=== PATIENT | male | born 1950 | race Two or more races ===

== ENCOUNTER 2017-09-17 14:32 | Inpatient (IN) | payer MEDICARE, MEDICAID ==
[~2017-09-17] VITALS: Ht 170.2 cm; Wt 71.0 kg
[~2017-09-17 14:32] MED LIST: ASPI-611 PO; ATOR20TA PO; CYCL-1 PO; DOCU100C23 PO; HYDR-3972 PO; HYDR25CA PO; MAGN296S50 PO; OMEP40CA37 PO
[2017-09-17 14:55] LABS: BASOPHILS # (AUTO) 0.1 X10'3 (0-0.2); BASOPHILS % (AUTO) 1.1 % (0-1); EOSINOPHILS # (AUTO) 0.3 X10'3 (0-0.9); EOSINOPHILS % (AUTO) 3.1 % (0-6); HEMATOCRIT 42.6 % (42.0-52.0); HEMOGLOBIN 14.5 g/dl (14.0-17.9); LYMPHOCYTES # (AUTO) 1.9 X10'3 (1.1-4.8); LYMPHOCYTES % (AUTO) 19.9 % (21-51); MEAN PLATELET VOLUME 8.4 FL (7.4-10.4); MONOCYTES # (AUTO) 0.4 X10'3 (0-0.9); MONOCYTES % (AUTO) 4.7 % (2-12); NEUTROPHILS # (AUTO) 6.8 X10'3 (1.8-7.7); NEUTROPHILS % (AUTO) 71.2 % (42-75); PLATELET COUNT 184 X10'3 (140-440); RED BLOOD COUNT 4.84 X10'6 (4.70-6.10); RED CELL DISTRIBUTION WIDTH 14.5 % (11.5-14.5); WHITE BLOOD COUNT 9.6 X10'3 (4.5-11.0)
[2017-09-17 15:06] LABS: PARTIAL THROMBOPLASTIN TIME 27 SECONDS (22-32)
[2017-09-17 15:11] LABS: ALANINE AMINOTRANSFERASE 23 U/L (12-78); ALBUMIN 3.9 G/DL (3.4-5.0); ALKALINE PHOSPHATASE 103 IU/L (46-116); ANION GAP 9 (8-16); ASPARTATE AMINO TRANSFERASE 14 U/L (10-37); BILIRUBIN,TOTAL 0.9 MG/DL (0.1-1.0); BLOOD UREA NITROGEN 33 MG/DL (7-18); BUN/CREATININE RATIO 20.6 (5.4-32.0); CALCIUM 8.8 MG/DL (8.5-10.1); CHLORIDE 104 MMOL/L (99-107); GLUCOSE 161 MG/DL (70-104); POTASSIUM 4.4 MMOL/L (3.5-5.1); SODIUM 137 MMOL/L (135-145); TOTAL PROTEIN 7.7 G/DL (6.4-8.2); eGFR 43 ML/MIN
[2017-09-17] MEDS ORDERED: hydrALAZINE 20mg/ml inj. IV ONE (15:35)
[2017-09-17] MEDS ORDERED: aspirin 325mg tablet PO ONE (15:35)
[2017-09-17] MEDS: nitroGLYCERIN 0.4mg SUBLingual tab SL PRN ×3 (15:45→15:56)
[2017-09-17] MEDS ORDERED: acetaminophen 325mg tablet PO PRN (15:50)
[2017-09-17] MEDS ORDERED: ondansetron/PF 4mg/2ml inj IV PRN (15:50)
[2017-09-17] MEDS ORDERED: docusate sod 100mg capsule PO PRN (15:50)
[2017-09-17] MEDS ORDERED: potassium Cl 20 mEq SR tablet PO PRN ×2 (15:50)
[2017-09-17] MEDS ORDERED: magnesium hydroxide 30ml (MOM) UD suspension PO PRN (15:50)
[2017-09-17] MEDS ORDERED: magnesium 2GM in 50ml NS 50 ML IV PRN (15:50)
[2017-09-17] MEDS ORDERED: potassium Cl 40MEQ/NS 500ml 500 ML IV PRN ×2 (15:50)
[2017-09-17] MEDS ORDERED: magnesium 4gm in 100ml NS 100 ML IV PRN (15:50)
[2017-09-17] MEDS ORDERED: cyclobenzaprine 10mg tablet PO PRN (15:50)
[2017-09-17] MEDS ORDERED: magnesium Cl slow-release 64mg tablet PO PRN (15:50)
[2017-09-17] MEDS ORDERED: mag hydrox/Alum hydrox/simeth 30ml oral suspension PO PRN (15:50)
[2017-09-17] MEDS ORDERED: HYDROcodone/acetaminophen 5mg/325mg tablet PO PRN (15:50)
[2017-09-17] MEDS ORDERED: morphine 2 MG/ML inj. syringe IV STA (16:21)
[2017-09-17] MEDS: morphine 2 MG/ML inj. syringe IV PRN ×2 (18:40→22:57)
[2017-09-17 21:45] VITALS: BP 145/77
[2017-09-18 02:00] VITALS: BP 142/83
[2017-09-18 03:25] LABS: BASOPHILS % (AUTO) 0.1 % (0-1); EOSINOPHILS # (AUTO) 0.5 X10'3 (0-0.9); EOSINOPHILS % (AUTO) 5.8 % (0-6); HEMATOCRIT 40.2 % (42.0-52.0); HEMOGLOBIN 13.7 g/dl (14.0-17.9); LYMPHOCYTES # (AUTO) 2.2 X10'3 (1.1-4.8); LYMPHOCYTES % (AUTO) 26.4 % (21-51); MEAN CORPUSCULAR HEMOGLOBIN 29.9 PG (27.0-31.0); MEAN CORPUSCULAR VOLUME 88.1 FL (78-98); MEAN PLATELET VOLUME 8.7 FL (7.4-10.4); MONOCYTES # (AUTO) 0.4 X10'3 (0-0.9); MONOCYTES % (AUTO) 5.4 % (2-12); NEUTROPHILS # (AUTO) 5.1 X10'3 (1.8-7.7); NEUTROPHILS % (AUTO) 62.3 % (42-75); PLATELET COUNT 171 X10'3 (140-440); RED BLOOD COUNT 4.57 X10'6 (4.70-6.10); RED CELL DISTRIBUTION WIDTH 14.6 % (11.5-14.5); WHITE BLOOD COUNT 8.1 X10'3 (4.5-11.0)
[2017-09-18 03:43] LABS: ALBUMIN 3.3 G/DL (3.4-5.0); ANION GAP 8 (8-16); BLOOD UREA NITROGEN 31 MG/DL (7-18); BUN/CREATININE RATIO 22.1 (5.4-32.0); CALCIUM 8.8 MG/DL (8.5-10.1); CHLORIDE 107 MMOL/L (99-107); GLUCOSE 93 MG/DL (70-104); MAGNESIUM 1.9 MG/DL (1.5-2.4); POTASSIUM 4.3 MMOL/L (3.5-5.1); SODIUM 139 MMOL/L (135-145); TOTAL CARBON DIOXIDE 24.3 MMOL/L (24-32); eGFR 50 ML/MIN
[2017-09-18] MEDS ORDERED: pneumococcal 23-VAL P-sac vacc 25 mcg/0.5ml vial IMVAC ONE (06:30)
[2017-09-18 07:00] VITALS: BP_SYST 138; BP_SYST 150; BP_DIAS 83; BP_DIAS 84
[2017-09-18] MEDS ORDERED: pantoprazole 40mg Tablet.DR PO SCH (07:30)
[2017-09-18] MEDS ORDERED: enoxaparin 40mg/0.4ml syringe SQ SCH (08:00)
[2017-09-18] MEDS ORDERED: K and/or MAG REPLACEMENT MC SCH (08:00)
[2017-09-18] MEDS ORDERED: atorvastatin 20mg tablet PO SCH (08:00)
[2017-09-18] MEDS ORDERED: aspirin 81mg tab.chew PO SCH (08:30)
[2017-09-18] MEDS: morphine 2 MG/ML inj. syringe IV PRN (11:21)
[2017-09-18 15:00] VITALS: BP 136/81
== END 2017-09-18 16:45 | disposition home or self-care (01) | DRG 313 ==
LOC: ER 14:32 → ED HOLD 15:50 → EDBEDREQ 18:38 → PCU 3S 20:07
PROVIDERS: ADMIT Internal Medicine; ATTEND Internal Medicine
DX: R07.89 Other chest pain (principal); E78.00 Pure hypercholesterolemia, unspecified; I10 Essential (primary) hypertension; K21.9 Gastro-esophageal reflux disease without esophagitis; Z86.14 Personal history of Methicillin resistant Staphylococcus aureus infection; Z79.899 Other long term (current) drug therapy; Z79.82 Long term (current) use of aspirin; Z87.440 Personal history of urinary (tract) infections
CPT/HCPCS: 36415; 71045; 80048; 80053; 83735; 84484; 85025; 85610; 85730; 87070; 93005; 96374; 99285; J0360; J1650; J2270

== ENCOUNTER 2018-03-14 07:37 | Emergency (ER) | payer MEDICARE, MEDICAID ==
[~2018-03-14] VITALS: Ht 157.5 cm; Wt 68.0 kg
[2018-03-14 07:55] VITALS: BP 192/93
[2018-03-14] MEDS ORDERED: mupirocin 2% ointment 22GM TP STA (08:21)
== END 2018-03-14 08:44 | disposition home or self-care (01) ==
LOC: ER 07:38
DX: S61.200A Unspecified open wound of right index finger without damage to nail, initial encounter (principal); E78.00 Pure hypercholesterolemia, unspecified; I10 Essential (primary) hypertension; K21.9 Gastro-esophageal reflux disease without esophagitis; Z86.14 Personal history of Methicillin resistant Staphylococcus aureus infection; Z98.890 Other specified postprocedural states; Z79.82 Long term (current) use of aspirin; Z79.899 Other long term (current) drug therapy; W26.9XXA Contact with unspecified sharp object(s), initial encounter; Y93.89 Activity, other specified; Y92.89 Other specified places as the place of occurrence of the external cause; Y99.8 Other external cause status
CPT/HCPCS: 99282

== ENCOUNTER 2018-05-05 13:04 | Emergency (ER) | payer MEDICARE, MEDICAID ==
[~2018-05-05] VITALS: Ht 175.3 cm; Wt 68.0 kg
[~2018-05-05 13:04] MED LIST changes: +DOCU-273 PO; -DOCU100C23 PO
[2018-05-05 14:00] LABS: CLARITY,URINE SLIGHTLY CLOUDY (Clear); COLOR,URINE YELLOW (Yellow); GLUCOSE, URINE NEGATIVE (Neg); KETONES,URINE NEGATIVE (Neg); LEUKOCYTE ESTERASE ,URINE MODERATE (Neg); NITRITES, URINE NEGATIVE (Neg); OCCULT BLOOD,URINE NEGATIVE (Neg); PROTEIN,URINE 100 mg/dl (Neg); UA COLLECTION TYPE CLN CATCH MIDSTREAM; UROBILINOGEN,URINE 0.2 E.U/dL (0.2-1.0)
[2018-05-05 14:07] LABS: BACTERIA,URINE 1+ /HPF (Neg); HYALINE CASTS 0-3 /LPF (NEGATIVE); MUCUS STRANDS NONE SEEN /LPF (Neg); RBC,URINE NONE SEEN /HPF (0-2); SQUAMOUS EPITHELIAL CELL,UR NONE SEEN /LPF (FEW); WBC,URINE 50-100 /HPF (0-4)
[2018-05-05] MEDS ORDERED: nitrofuran/nitrofuran macrocrysal 100 MG capsule PO ONE (14:50)
[2018-05-05] MEDS ORDERED: ketorolac trometh inj. 60 MG/2 ML VIAL IM ONE (14:50)
[2018-05-05] MEDS ORDERED: ketorolac trometh. 30mg/ml inj. IM ONE (14:55)
[2018-05-05 15:22] LABS: BASOPHILS % (AUTO) 0.4 % (0-1); EOSINOPHILS # (AUTO) 0.3 X10'3 (0-0.9); EOSINOPHILS % (AUTO) 4.5 % (0-6); HEMATOCRIT 41.2 % (42.0-52.0); HEMOGLOBIN 14.3 g/dl (14.0-17.9); LYMPHOCYTES # (AUTO) 2.5 X10'3 (1.1-4.8); LYMPHOCYTES % (AUTO) 43.4 % (21-51); MEAN CORPUSCULAR HEMOGLOBIN 31.6 PG (27.0-31.0); MEAN CORPUSCULAR HGB CONC 34.7 % (33.0-36.5); MEAN PLATELET VOLUME 8.6 FL (7.4-10.4); MONOCYTES # (AUTO) 0.4 X10'3 (0-0.9); MONOCYTES % (AUTO) 6.3 % (2-12); NEUTROPHILS # (AUTO) 2.7 X10'3 (1.8-7.7); NEUTROPHILS % (AUTO) 45.4 % (42-75); PLATELET COUNT 170 X10'3 (140-440); RED BLOOD COUNT 4.53 X10'6 (4.70-6.10); RED CELL DISTRIBUTION WIDTH 13.9 % (11.5-14.5); WHITE BLOOD COUNT 5.9 X10'3 (4.5-11.0)
[2018-05-05 15:36] LABS: ALANINE AMINOTRANSFERASE 20 U/L (12-78); ALBUMIN 3.5 G/DL (3.4-5.0); ALBUMIN/GLOBULIN RATIO 0.9 (1.1-1.5); ALKALINE PHOSPHATASE 100 IU/L (46-116); ANION GAP 9 (8-16); ASPARTATE AMINO TRANSFERASE 18 U/L (10-37); BILIRUBIN,TOTAL 0.7 MG/DL (0.1-1.0); BLOOD UREA NITROGEN 27 MG/DL (7-18); BUN/CREATININE RATIO 16.4 (5.4-32.0); CALCIUM 8.4 MG/DL (8.5-10.1); CHLORIDE 106 MMOL/L (99-107); CREATININE 1.65 MG/DL (0.60-1.10); GLUCOSE 94 MG/DL (70-104); POTASSIUM 4.4 MMOL/L (3.5-5.1); SODIUM 139 MMOL/L (135-145); TOTAL CARBON DIOXIDE 24.3 MMOL/L (24-32); TOTAL PROTEIN 7.2 G/DL (6.4-8.2); eGFR 42 ML/MIN
[2018-05-05] MEDS ORDERED: NITR100C6 PO (15:46)
[2018-05-05 16:07] VITALS: BP 177/95
== END 2018-05-05 16:12 | disposition home or self-care (01) ==
LOC: ER 13:05
DX: N39.0 Urinary tract infection, site not specified (principal); M54.5 Low back pain; G89.29 Other chronic pain; E78.00 Pure hypercholesterolemia, unspecified; I10 Essential (primary) hypertension; K21.9 Gastro-esophageal reflux disease without esophagitis; Z86.14 Personal history of Methicillin resistant Staphylococcus aureus infection; Z98.890 Other specified postprocedural states; Z79.82 Long term (current) use of aspirin; Z79.899 Other long term (current) drug therapy
CPT/HCPCS: 36415; 80053; 81001; 85025; 87077; 87088; 87186; 96372; 99284; J1885

== ENCOUNTER 2018-05-10 09:03 | Emergency (ER) | payer MEDICARE, MEDICAID ==
[~2018-05-10] VITALS: Ht 172.7 cm; Wt 68.2 kg
[~2018-05-10 09:03] MED LIST changes: +NITR100C6 PO
[2018-05-10 09:05] VITALS: BP 169/103
[2018-05-10] MEDS ORDERED: ketorolac trometh inj. 60 MG/2 ML VIAL IM ONE (10:00)
== END 2018-05-10 10:31 | disposition home or self-care (01) ==
LOC: ER 09:03
DX: G89.29 Other chronic pain (principal); M54.5 Low back pain; E78.00 Pure hypercholesterolemia, unspecified; I10 Essential (primary) hypertension; K21.9 Gastro-esophageal reflux disease without esophagitis; Z79.82 Long term (current) use of aspirin; Z79.899 Other long term (current) drug therapy
CPT/HCPCS: 72070; 96372; 99284; J1885

== ENCOUNTER 2019-05-05 14:32 | Emergency (ER) | payer MEDICARE, MEDICAID ==
[~2019-05-05] VITALS: Ht 175.3 cm; Wt 58.9 kg
[~2019-05-05 14:32] MED LIST changes: +OMEP40CA13 PO; -OMEP40CA37 PO
[2019-05-05 14:36] VITALS: BP 199/102
[2019-05-05] MEDS ORDERED: LIDOcaine Viscous 15ml cup PO ONE (15:10)
[2019-05-05] MEDS ORDERED: mag hydrox/Alum hydrox/simeth 30ml oral suspension PO ONE (15:10)
[2019-05-05 15:34] LABS: PARTIAL THROMBOPLASTIN TIME 26 SECONDS (22-32)
[2019-05-05 15:36] LABS: BASOPHILS % (AUTO) 0.4 % (0-1); EOSINOPHILS # (AUTO) 0.2 X10'3 (0-0.9); EOSINOPHILS % (AUTO) 2.4 % (0-6); HEMATOCRIT 43.5 % (42.0-52.0); HEMOGLOBIN 14.9 g/dl (14.0-17.9); LYMPHOCYTES # (AUTO) 3.1 X10'3 (1.1-4.8); MEAN CORPUSCULAR HEMOGLOBIN 31.7 PG (27.0-31.0); MEAN CORPUSCULAR HGB CONC 34.2 g/dL (33.0-36.5); MEAN CORPUSCULAR VOLUME 92.4 FL (78-98); MEAN PLATELET VOLUME 8.6 FL (7.4-10.4); MONOCYTES # (AUTO) 0.3 X10'3 (0-0.9); MONOCYTES % (AUTO) 4.8 % (2-12); NEUTROPHILS # (AUTO) 3.6 X10'3 (1.8-7.7); NEUTROPHILS % (AUTO) 49.4 % (42-75); PLATELET COUNT 167 X10'3 (140-440); RED BLOOD COUNT 4.71 X10'6 (4.70-6.10); RED CELL DISTRIBUTION WIDTH 13.7 % (11.5-14.5); WHITE BLOOD COUNT 7.2 X10'3 (4.5-11.0)
[2019-05-05 15:37] LABS: ALANINE AMINOTRANSFERASE 31 U/L (12-78); ALBUMIN 3.7 G/DL (3.4-5.0); ALKALINE PHOSPHATASE 103 IU/L (46-116); ANION GAP 12 (8-16); ASPARTATE AMINO TRANSFERASE 16 U/L (10-37); BILIRUBIN,TOTAL 0.8 MG/DL (0.1-1.0); BLOOD UREA NITROGEN 27 MG/DL (7-18); BUN/CREATININE RATIO 17.9 (5.4-32.0); CALCIUM 8.9 MG/DL (8.5-10.1); CHLORIDE 103 MMOL/L (99-107); CREATININE 1.51 MG/DL (0.60-1.10); GLUCOSE 158 MG/DL (70-104); POTASSIUM 4.1 MMOL/L (3.5-5.1); SODIUM 138 MMOL/L (135-145); TOTAL CARBON DIOXIDE 22.6 MMOL/L (24-32); TOTAL PROTEIN 7.4 G/DL (6.4-8.2); eGFR 46 ML/MIN
[2019-05-05] MEDS ORDERED: OMEP40CA13 PO (15:54)
== END 2019-05-05 16:07 | disposition home or self-care (01) ==
LOC: ER 14:33
DX: R10.13 Epigastric pain (principal); R07.89 Other chest pain; R06.02 Shortness of breath; E78.00 Pure hypercholesterolemia, unspecified; I10 Essential (primary) hypertension; K21.9 Gastro-esophageal reflux disease without esophagitis; Z86.14 Personal history of Methicillin resistant Staphylococcus aureus infection; Z98.890 Other specified postprocedural states; Z79.82 Long term (current) use of aspirin; Z79.899 Other long term (current) drug therapy
CPT/HCPCS: 36415; 71045; 80053; 84484; 85025; 85610; 85730; 93005; 99284

== ENCOUNTER 2019-05-06 11:55 | Emergency (ER) | payer MEDICARE, MEDICAID | END 2019-05-06 13:39 | disposition left against medical advice (07) | LOC: ER 11:57 | DX: R51 Headache (principal); Z53.21 Procedure and treatment not carried out due to patient leaving prior to being seen by health care provider ==

== ENCOUNTER 2019-08-11 09:19 | Emergency (ER) | payer MEDICARE, MEDICAID ==
[~2019-08-11] VITALS: Ht 175.3 cm; Wt 66.0 kg
[2019-08-11] MEDS ORDERED: BENZ-16 PO (10:32)
[2019-08-11] MEDS ORDERED: AZIT250T83 PO (10:32)
[2019-08-11 10:35] VITALS: BP 141/73
[2019-08-11] MEDS ORDERED: ketorolac trometh. 30mg/ml inj. IV ONE (11:00)
== END 2019-08-11 11:28 | disposition home or self-care (01) ==
LOC: ER 09:21
DX: R05 Cough (principal); R11.2 Nausea with vomiting, unspecified; E78.00 Pure hypercholesterolemia, unspecified; I10 Essential (primary) hypertension; K21.9 Gastro-esophageal reflux disease without esophagitis; Z86.14 Personal history of Methicillin resistant Staphylococcus aureus infection; Z98.890 Other specified postprocedural states; Z79.82 Long term (current) use of aspirin; Z79.899 Other long term (current) drug therapy
CPT/HCPCS: 96374; 99283; J1885

== ENCOUNTER 2019-10-03 09:03 | Emergency (ER) | payer MEDICARE, MEDICAID ==
[~2019-10-03] VITALS: Ht 175.3 cm; Wt 68.2 kg
[~2019-10-03 09:03] MED LIST changes: -MAGN296S50 PO; +MAGN296S70 PO
[2019-10-03 09:19] VITALS: BP 165/85
[2019-10-03] MEDS ORDERED: PANT-47 PO (09:23)
[2019-10-03] MEDS ORDERED: METO-384 PO (09:23)
== END 2019-10-03 09:38 | disposition home or self-care (01) ==
LOC: ER 09:03
DX: I10 Essential (primary) hypertension (principal); E78.00 Pure hypercholesterolemia, unspecified; K21.9 Gastro-esophageal reflux disease without esophagitis; Z86.14 Personal history of Methicillin resistant Staphylococcus aureus infection; Z98.890 Other specified postprocedural states; Z79.82 Long term (current) use of aspirin; Z79.899 Other long term (current) drug therapy
CPT/HCPCS: 99281

== ENCOUNTER 2019-11-08 10:49 | Emergency (ER) | payer MEDICARE, MEDICAID ==
[~2019-11-08] VITALS: Ht 175.3 cm; Wt 69.1 kg
[~2019-11-08 10:49] MED LIST changes: +METO-384 PO; +PANT-47 PO
[2019-11-08 12:00] VITALS: BP 186/102
[2019-11-08] MEDS ORDERED: ipratropium/albuterol 3ml nebule NEB ONE (13:05)
[2019-11-08] MEDS ORDERED: azithromycin 250mg tablet PO ONE (13:15)
[2019-11-08] MEDS ORDERED: predniSONE 20 mg tablet PO ONE (13:15)
[2019-11-08] MEDS ORDERED: AZIT-63 PO (13:17)
[2019-11-08] MEDS ORDERED: PRED20TA PO (13:17)
[2019-11-08] MEDS ORDERED: ALBU6.7H9 INH (13:17)
== END 2019-11-08 13:39 | disposition home or self-care (01) ==
LOC: ER 10:50
DX: J20.9 Acute bronchitis, unspecified (principal); I10 Essential (primary) hypertension; E78.00 Pure hypercholesterolemia, unspecified; K21.9 Gastro-esophageal reflux disease without esophagitis; Z86.14 Personal history of Methicillin resistant Staphylococcus aureus infection; Z98.890 Other specified postprocedural states; Z79.82 Long term (current) use of aspirin; Z79.899 Other long term (current) drug therapy; Z79.2 Long term (current) use of antibiotics
CPT/HCPCS: 71045; 93005; 94640; 99283; J7512; 94760

== ENCOUNTER 2019-12-18 10:38 | Emergency (ER) | payer MEDICARE, MEDICAID ==
[~2019-12-18] VITALS: Ht 172.7 cm; Wt 68.2 kg
[~2019-12-18 10:38] MED LIST changes: +ALBU6.7H9 INH
[2019-12-18 10:45] VITALS: BP 117/53
--- NOTE | 2019-12-18 11:12 | NUR ---
Patient has no physical complaint. He requests a refill of an unknown white pill. Pill identifier indicates that it is likely norco. Patient states the pill is used for pain.
== END 2019-12-18 12:45 | disposition home or self-care (01) ==
LOC: ER 10:38
DX: E78.00 Pure hypercholesterolemia, unspecified (principal); I10 Essential (primary) hypertension; K21.9 Gastro-esophageal reflux disease without esophagitis; Z86.14 Personal history of Methicillin resistant Staphylococcus aureus infection; Z98.890 Other specified postprocedural states; Z79.82 Long term (current) use of aspirin; Z79.899 Other long term (current) drug therapy; Z76.0 Encounter for issue of repeat prescription
CPT/HCPCS: 99281

== ENCOUNTER 2019-12-21 09:46 | Inpatient (IN) | payer MEDICARE, MEDICAID ==
[~2019-12-21] VITALS: Ht 175.3 cm; Wt 68.0 kg
[2019-12-21 10:50] LABS: BASOPHILS % (AUTO) 0.3 % (0-1); EOSINOPHILS # (AUTO) 0.2 X10'3 (0-0.9); EOSINOPHILS % (AUTO) 2.1 % (0-6); HEMATOCRIT 45.1 % (42.0-52.0); HEMOGLOBIN 15.1 g/dl (14.0-17.9); LYMPHOCYTES # (AUTO) 1.8 X10'3 (1.1-4.8); LYMPHOCYTES % (AUTO) 21.1 % (21-51); MEAN CORPUSCULAR HEMOGLOBIN 30.6 PG (27.0-31.0); MEAN CORPUSCULAR HGB CONC 33.5 g/dL (33.0-36.5); MEAN CORPUSCULAR VOLUME 91.3 FL (78-98); MEAN PLATELET VOLUME 10.7 FL (7.4-10.4); MONOCYTES # (AUTO) 0.4 X10'3 (0-0.9); MONOCYTES % (AUTO) 4.7 % (2-12); NEUTROPHILS % (AUTO) 71.8 % (42-75); PLATELET COUNT 151 X10'3 (140-440); RED BLOOD COUNT 4.94 X10'6 (4.70-6.10); RED CELL DISTRIBUTION WIDTH 14.2 % (11.5-14.5); WHITE BLOOD COUNT 8.4 X10'3 (4.5-11.0)
[2019-12-21 10:55] LABS: PARTIAL THROMBOPLASTIN TIME 26 SECONDS (22-32)
[2019-12-21] MEDS ORDERED: normal saline 1000ML IV soln IVB ONE ×2 (11:00→11:35)
[2019-12-21 11:05] LABS: ALANINE AMINOTRANSFERASE 26 U/L (12-78); ALBUMIN 3.6 G/DL (3.4-5.0); ALBUMIN/GLOBULIN RATIO 0.9 (1.1-1.5); ALKALINE PHOSPHATASE 136 IU/L (46-116); ANION GAP 10 (8-16); ASPARTATE AMINO TRANSFERASE 23 U/L (10-37); BILIRUBIN,TOTAL 1.1 MG/DL (0.1-1.0); BLOOD UREA NITROGEN 57 MG/DL (7-18); BUN/CREATININE RATIO 25.8 (5.4-32.0); CALCIUM 8.9 MG/DL (8.5-10.1); CHLORIDE 98 MMOL/L (99-107); CREATININE 2.21 MG/DL (0.60-1.10); POTASSIUM 4.9 MMOL/L (3.5-5.1); SODIUM 129 MMOL/L (135-145); TOTAL CARBON DIOXIDE 21.1 MMOL/L (24-32); TOTAL PROTEIN 7.6 G/DL (6.4-8.2); eGFR 29 ML/MIN
[2019-12-21] MEDS ORDERED: insulin regular, human U-100 3ml vial - multi-dose SQ ONE (11:05)
[2019-12-21] MEDS ORDERED: insulin regular, human 10 units/0.1 ml syringe SQ ONE (11:05)
[2019-12-21 11:08] LABS: GLUCOSE 629 MG/DL (70-104)
[2019-12-21 11:10] LABS: LARGE PLATELETS FEW; PLATELET ESTIMATE NORMAL
[2019-12-21] MEDS ORDERED: normal saline 1000ml 1,000 ML IV SCH (12:51)
[2019-12-21] MEDS ORDERED: magnesium hydroxide 30ml (MOM) UD suspension PO PRN (12:55)
[2019-12-21] MEDS ORDERED: acetaminophen 325mg tablet PO PRN (12:55)
[2019-12-21] MEDS ORDERED: mag hydrox/Alum hydrox/simeth 30ml oral suspension PO PRN (12:55)
[2019-12-21] MEDS ORDERED: ondansetron/PF 4mg/2ml inj IV PRN (12:55)
[2019-12-21 13:12] LABS: CLARITY,URINE CLEAR (Clear); COLOR,URINE STRAW (Yellow); GLUCOSE, URINE >=1000 mg/dl (Neg); KETONES,URINE NEGATIVE (Neg); LEUKOCYTE ESTERASE ,URINE NEGATIVE (Neg); NITRITES, URINE NEGATIVE (Neg); OCCULT BLOOD,URINE TRACE-INTACT (Neg); PROTEIN,URINE NEGATIVE (Neg); UROBILINOGEN,URINE 0.2 E.U/dL (0.2-1.0)
[2019-12-21 13:14] LABS: UA COLLECTION TYPE CLN CATCH MIDSTREAM
[2019-12-21] MEDS ORDERED: PANT40TA4 PO (13:22)
[2019-12-21] MEDS ORDERED: ATOR-2 PO (13:22)
[2019-12-21] MEDS ORDERED: ALBU18HF2 IH (13:22)
[2019-12-21] MEDS ORDERED: HYDR-4069 PO (13:22)
[2019-12-21] MEDS ORDERED: DICL100G30 TP (13:22)
[2019-12-21] MEDS ORDERED: METO50TA16 PO (13:22)
[2019-12-21] MEDS ORDERED: TRIA15CR61 TP (13:22)
[2019-12-21] MEDS ORDERED: DULO30CA52 PO (13:22)
[2019-12-21] MEDS ORDERED: GABA-532 PO (13:22)
[2019-12-21 13:24] LABS: BACTERIA,URINE FEW /HPF (Neg); RBC,URINE 0-2 /HPF (0-2); SQUAMOUS EPITHELIAL CELL,UR FEW /LPF (FEW); WBC CLUMPS,URINE FEW /HPF (NEGATIVE); WBC,URINE 0-4 /HPF (0-4)
--- NOTE | 2019-12-21 13:29 | NUR ---
promotional table spacer PAGER ID: [phone] MESSAGE: Re: Colin Cardona, Room: 3010. Pt coming up from ED can I put hyper/hypoglycemic protocol in for Pt. [id number] Hollingsworth paged concerning Hypo-hyperglycemic protocol orders.
--- NOTE | 2019-12-21 13:30 | NUR ---
received report from ER nurse concerning Pt. Had opportunity to ask questions, awaiting Pt's arrival to room 3010.
--- NOTE | 2019-12-21 13:30 | NUR ---
Pt arrived to unit, Pt stable and alert/oriented. Vitals taken WNL. Pt oriented to room and call light. Will continue to monitor Pt.
[2019-12-21 13:45] VITALS: BP 154/83
--- NOTE | 2019-12-21 14:29 | NUR ---
DM consult: Per H&P pt came to the ER per PCP d/t elevated blood sugars in the range of 700s, patient is newly diagnosed diabetic with a hemoglobin A1c of 10.4%. Pt just admitted today, pending physical assessment. Pt would benefit from DM education with referral to outpatient CDE course once stable. Pt on CHO controlled diet, pending PO intake. Will continue to follow closely. Recommendations: 1) Continue CHO controlled diet 2) DM education once stable 3) Bowel care PRN 4) Wt per rx Addendum: 12/21/19 at [address] Amended: Links added.
[2019-12-21] MEDS ORDERED: dextrose 50%-water 50ml dispensing syringe IV PRN ×2 (15:35)
[2019-12-21] MEDS ORDERED: MESSAGE TO PHARMACY PO ONE (15:35)
[2019-12-21] MEDS ORDERED: dextrose ORAL solution 15 GM/59 ML bottle PO PRN ×2 (15:35)
[2019-12-21] MEDS ORDERED: insulin Lispro (HumaLOG) vial - multi-dose SQ SCH (15:35)
[2019-12-21] MEDS ORDERED: glucagon, human recombinant 1mg kit SUBCUT PRN (15:35)
[2019-12-21 18:00] VITALS: BP 162/73
--- NOTE | 2019-12-21 18:10 | NUR ---
Problems reprioritized. Patient report given, questions answered & plan of care reviewed with Ariana COSTELLO.
[2019-12-21] MEDS ORDERED: traMADol 50MG tablet PO ONE (19:05)
[2019-12-21] MEDS ORDERED: heparin, porcine 5000 units/ml vial SQ SCH (20:00)
[2019-12-21] MEDS ORDERED: albuterol 2.5 MG/3 ML nebule NEB SCH (20:00)
[2019-12-21] MEDS ORDERED: metoprolol tartrate 50mg tablet PO SCH (20:00)
[2019-12-21] MEDS ORDERED: triamcinolone acetonide 0.5% cream 15gm TP SCH (20:00)
[2019-12-21] MEDS ORDERED: DICLOFENAC SODIUM TP SCH (20:00)
--- NOTE | 2019-12-21 20:48 | NUR ---
reviewed and agree with SRN assessment. patient left AMA. dr Ang notified.
[2019-12-21] MEDS ORDERED: hydrALAZINE 25 MG tablet PO SCH (21:00)
[2019-12-21] MEDS ORDERED: insulin glargine (Lantus) pen - multi-dose SQ SCH (21:00)
[2019-12-21] MEDS ORDERED: gabapentin 300mg capsule PO SCH (21:00)
[2019-12-22] MEDS ORDERED: atorvastatin 20mg tablet PO SCH (08:00)
[2019-12-22] MEDS ORDERED: duloxetine 30mg CAPSULE.DR PO SCH (08:00)
== END 2019-12-21 19:10 | disposition left against medical advice (07) | DRG 637 ==
LOC: ER 09:46 → ED HOLD 12:51 → PCU 3S 13:47
PROVIDERS: ADMIT Family Medicine; ATTEND Family Medicine
DX: E11.65 Type 2 diabetes mellitus with hyperglycemia (principal); N17.0 Acute kidney failure with tubular necrosis; E87.1 Hypo-osmolality and hyponatremia; E78.00 Pure hypercholesterolemia, unspecified; E78.5 Hyperlipidemia, unspecified; E86.0 Dehydration; Z53.29 Procedure and treatment not carried out because of patient's decision for other reasons; I10 Essential (primary) hypertension; L29.9 Pruritus, unspecified; N40.0 Benign prostatic hyperplasia without lower urinary tract symptoms; Z96.652 Presence of left artificial knee joint; K21.9 Gastro-esophageal reflux disease without esophagitis; Z86.14 Personal history of Methicillin resistant Staphylococcus aureus infection; Z87.440 Personal history of urinary (tract) infections; Z79.899 Other long term (current) drug therapy
CPT/HCPCS: 36415; 71045; 80053; 81001; 82948; 83036; 83880; 84484; 85025; 85610; 85730; 87081; 93306; 96360; 96372; 99285; G0378; J1815; J7030

== ENCOUNTER 2020-04-19 08:41 | Emergency (ER) | payer MEDICARE, MEDICAID ==
[~2020-04-19] VITALS: Ht 175.3 cm; Wt 58.0 kg
[~2020-04-19 08:41] MED LIST changes: +ALBU18HF2 IH; -ALBU6.7H9 INH; -ASPI-611 PO; +ATOR-2 PO; -ATOR20TA PO; -CYCL-1 PO; +DICL100G30 TP; -DOCU-273 PO; +DULO30CA52 PO; +GABA-532 PO; -HYDR-3972 PO; +HYDR-4069 PO; -HYDR25CA PO; -MAGN296S70 PO; -METO-384 PO; +METO50TA16 PO; -NITR100C6 PO; -OMEP40CA13 PO; -PANT-47 PO; +PANT40TA54 PO; +TRIA15CR61 TP
[2020-04-19] MEDS ORDERED: ketorolac tromethamine 15mg/ml inj. IM ONE (09:40)
[2020-04-19] MEDS ORDERED: cyclobenzaprine 10mg tablet PO ONE (09:40)
[2020-04-19] MEDS ORDERED: ORPH100T2 PO (09:47)
[2020-04-19] MEDS ORDERED: FLO0.4C PO (10:31)
[2020-04-19 10:32] VITALS: BP 140/85
== END 2020-04-19 10:35 | disposition home or self-care (01) ==
LOC: ER 08:42
DX: S39.011A Strain of muscle, fascia and tendon of abdomen, initial encounter (principal); E78.00 Pure hypercholesterolemia, unspecified; I10 Essential (primary) hypertension; K21.9 Gastro-esophageal reflux disease without esophagitis; Z86.14 Personal history of Methicillin resistant Staphylococcus aureus infection; Z98.890 Other specified postprocedural states; Z79.899 Other long term (current) drug therapy; X58.XXXA Exposure to other specified factors, initial encounter; Y93.89 Activity, other specified; Y92.89 Other specified places as the place of occurrence of the external cause; Y99.8 Other external cause status
CPT/HCPCS: 96372; 99283; J1885

== ENCOUNTER 2020-08-12 10:52 | Emergency (ER) | payer MEDICARE, MEDICAID ==
[~2020-08-12] VITALS: Ht 175.3 cm; Wt 68.2 kg
[~2020-08-12 10:52] MED LIST changes: +FLO0.4C PO; +ORPH100T2 PO
[2020-08-12 12:08] VITALS: BP 162/90
[2020-08-12 12:14] LABS: BASOPHILS % (AUTO) 0.7 % (0-1); EOSINOPHILS # (AUTO) 0.1 X10'3 (0-0.9); EOSINOPHILS % (AUTO) 2.1 % (0-6); HEMATOCRIT 45.3 % (42.0-52.0); HEMOGLOBIN 15.3 g/dl (14.0-17.9); LYMPHOCYTES # (AUTO) 2.1 X10'3 (1.1-4.8); LYMPHOCYTES % (AUTO) 30.2 % (21-51); MEAN CORPUSCULAR HGB CONC 33.8 g/dL (33.0-36.5); MEAN CORPUSCULAR VOLUME 88.9 FL (78-98); MEAN PLATELET VOLUME 10.6 FL (7.4-10.4); MONOCYTES # (AUTO) 0.4 X10'3 (0-0.9); MONOCYTES % (AUTO) 5.1 % (2-12); NEUTROPHILS # (AUTO) 4.3 X10'3 (1.8-7.7); NEUTROPHILS % (AUTO) 61.9 % (42-75); PLATELET COUNT 127 X10'3 (140-440); RED CELL DISTRIBUTION WIDTH 15.7 % (11.5-14.5); WHITE BLOOD COUNT 6.9 X10'3 (4.5-11.0)
[2020-08-12 12:29] LABS: ALANINE AMINOTRANSFERASE 27 U/L (12-78); ALBUMIN/GLOBULIN RATIO 0.9 (1.1-1.5); ALKALINE PHOSPHATASE 134 IU/L (46-116); ANION GAP 12 (8-16); ASPARTATE AMINO TRANSFERASE 14 U/L (10-37); BILIRUBIN,TOTAL 0.8 MG/DL (0.1-1.0); BLOOD UREA NITROGEN 33 MG/DL (7-18); BUN/CREATININE RATIO 20.9 (5.4-32.0); CALCIUM 9.3 MG/DL (8.5-10.1); CHLORIDE 105 MMOL/L (99-107); CREATININE 1.58 MG/DL (0.60-1.10); GLUCOSE 297 MG/DL (70-104); POTASSIUM 4.3 MMOL/L (3.5-5.1); SODIUM 140 MMOL/L (135-145); TOTAL CARBON DIOXIDE 23.4 MMOL/L (24-32); TOTAL PROTEIN 8.7 G/DL (6.4-8.2); eGFR 43 ML/MIN
--- NOTE | 2020-08-12 14:00 | NUR ---
Patient states that he feels it it to busy to stay and will come back tomorrow if still having symptoms. Dr. Sabillon is aware. LWOBS
[2020-08-13] MEDS ORDERED: ATOR40TA72 PO (15:32)
[2020-08-13] MEDS ORDERED: PREG100C55 PO (15:32)
== END 2020-08-12 15:19 | disposition left against medical advice (07) ==
LOC: ER 10:52
DX: R07.89 Other chest pain (principal); Z53.21 Procedure and treatment not carried out due to patient leaving prior to being seen by health care provider
CPT/HCPCS: 36415; 71045; 80053; 83880; 84484; 85025; 93005

== ENCOUNTER 2020-08-13 09:06 | Inpatient (IN) | payer MEDICARE, MEDICAID ==
[~2020-08-13] VITALS: Ht 175.3 cm; Wt 67.4 kg
--- NOTE | 2020-08-13 10:44 | NUR ---
DR. REYNA AT BEDSIDE TALKING WITH DIRECTOR OF ANESTHESIA SERVICES OVER THE COMPUTER.
[2020-08-13 11:35] LABS: BASOPHILS % (AUTO) 0.4 % (0-1); EOSINOPHILS # (AUTO) 0.1 X10'3 (0-0.9); EOSINOPHILS % (AUTO) 1.3 % (0-6); HEMATOCRIT 44.2 % (42.0-52.0); HEMOGLOBIN 14.9 g/dl (14.0-17.9); LYMPHOCYTES # (AUTO) 1.9 X10'3 (1.1-4.8); LYMPHOCYTES % (AUTO) 31.8 % (21-51); MEAN CORPUSCULAR HEMOGLOBIN 30.3 PG (27.0-31.0); MEAN CORPUSCULAR HGB CONC 33.8 g/dL (33.0-36.5); MEAN CORPUSCULAR VOLUME 89.4 FL (78-98); MEAN PLATELET VOLUME 10.5 FL (7.4-10.4); MONOCYTES # (AUTO) 0.3 X10'3 (0-0.9); MONOCYTES % (AUTO) 4.6 % (2-12); NEUTROPHILS # (AUTO) 3.7 X10'3 (1.8-7.7); NEUTROPHILS % (AUTO) 61.9 % (42-75); PLATELET COUNT 117 X10'3 (140-440); RED BLOOD COUNT 4.94 X10'6 (4.70-6.10); RED CELL DISTRIBUTION WIDTH 15.9 % (11.5-14.5); WHITE BLOOD COUNT 5.9 X10'3 (4.5-11.0)
[2020-08-13 11:51] LABS: ALANINE AMINOTRANSFERASE 25 U/L (12-78); ALBUMIN 3.7 G/DL (3.4-5.0); ALBUMIN/GLOBULIN RATIO 0.8 (1.1-1.5); ALKALINE PHOSPHATASE 132 IU/L (46-116); ANION GAP 10 (8-16); ASPARTATE AMINO TRANSFERASE 15 U/L (10-37); BILIRUBIN,TOTAL 0.7 MG/DL (0.1-1.0); BLOOD UREA NITROGEN 28 MG/DL (7-18); BUN/CREATININE RATIO 17.6 (5.4-32.0); CHLORIDE 105 MMOL/L (99-107); CREATININE 1.59 MG/DL (0.60-1.10); GLUCOSE 447 MG/DL (70-104); POTASSIUM 4.4 MMOL/L (3.5-5.1); SODIUM 139 MMOL/L (135-145); TOTAL CARBON DIOXIDE 24.1 MMOL/L (24-32); TOTAL PROTEIN 8.1 G/DL (6.4-8.2); eGFR 43 ML/MIN
[2020-08-13 11:58] LABS: MAGNESIUM 1.9 MG/DL (1.5-2.4)
[2020-08-13] MEDS ORDERED: HYDROcodone/acetaminophen 10/325mg tab PO PRN (13:45)
[2020-08-13] MEDS ORDERED: normal saline 1000ml 1,000 ML IV SCH (13:45)
[2020-08-13] MEDS ORDERED: aminophylline 250mg/10ml inj. IV PRN (13:45)
[2020-08-13] MEDS ORDERED: potassium Cl 40MEQ/1/2NS 520ml 520 ML IV PRN ×2 (13:45)
[2020-08-13] MEDS ORDERED: magnesium Cl slow-release 64mg tablet PO PRN (13:45)
[2020-08-13] MEDS ORDERED: morphine 2 MG/ML inj. syringe IV PRN ×2 (13:45)
[2020-08-13] MEDS ORDERED: mag hydrox/Alum hydrox/simeth 30ml oral suspension PO PRN (13:45)
[2020-08-13] MEDS ORDERED: metoprolol tartrate 1mg/ml inj IV PRN (13:45)
[2020-08-13] MEDS ORDERED: magnesium 4gm in 100ml NS 100 ML IV PRN (13:45)
[2020-08-13] MEDS ORDERED: magnesium hydroxide 30ml (MOM) UD suspension PO PRN (13:45)
[2020-08-13] MEDS ORDERED: ondansetron/PF 4mg/2ml inj IV PRN (13:45)
[2020-08-13] MEDS ORDERED: nitroGLYCERIN 0.4mg SUBLingual tab SL PRN ×2 (13:45)
[2020-08-13] MEDS ORDERED: HYDROcodone/acetaminophen 5mg/325mg tablet PO PRN (13:45)
[2020-08-13] MEDS ORDERED: potassium Cl 20 mEq SR tablet PO PRN ×2 (13:45)
[2020-08-13] MEDS ORDERED: magnesium 2GM in 50ml NS 50 ML IV PRN (13:45)
[2020-08-13] MEDS ORDERED: acetaminophen 325mg tablet PO PRN ×2 (13:45)
[2020-08-13] MEDS ORDERED: regadenoson 0.4mg/5ml syringe IV ONE (13:45)
--- NOTE | 2020-08-13 14:00 | NUR ---
PT ANGRY AND UPSET STATES, I WANT TO LEAVE VARUN BEEN HERE FOR 3 HOURS. PT MORE CALM AND AWAITING DR. HINES TO SEE PT.
[2020-08-13 14:41] LABS: HEMOGLOBIN A1C 8.6 % (4.5-6.2)
[2020-08-13] MEDS ORDERED: ATOR40TA72 PO (15:32)
[2020-08-13] MEDS ORDERED: PREG100C55 PO (15:32)
--- NOTE | 2020-08-13 16:46 | NUR ---
Patient in room ED 3. I have received report from PRAVIN Barros and had the opportunity to ask questions and awaiting pt's arrival from ED.
[2020-08-13 17:10] VITALS: BP 162/81
--- NOTE | 2020-08-13 17:10 | NUR ---
Pt arrived from Ed, ambulated self to bed with standby assistance. Alert and oriented to room. BLL, SRx2, CL within reach, non skid socks on. Used pension manager phone for communication with day. MRSA swab completed. First set of vitals complete. BP 162/88, HR 98, R 20, Pain 6/10 in back and legs, Temp 98.2, 02 97 Room air.
--- NOTE | 2020-08-13 17:31 | NUR ---
Paged Dr Jeffrey PAGER ID: [phone] MESSAGE: Colin Wolfe Rm [id number] Did you want pt to have hper/hypoglycemia protocol, you only ordered hyperglycemia protocol? Thank you Karol [phone]
--- NOTE | 2020-08-13 18:00 | NUR ---
Patient in room PCU 3028. I have received report from Karol COSTELLO and had the opportunity to ask questions and assume patient care. Patient was willing to listen to Dr Jeffrey and agreed to stay and do a stress test in the morning.
--- NOTE | 2020-08-13 18:37 | NUR ---
[place] Medication Administration: For this medication-pass time frame, all medication were reviewed, dispensed, administered and documented per hospital policy by PRAVIN Carl.
--- NOTE | 2020-08-13 18:37 | NUR ---
Orientee documentation: I have reviewed and agree with all interventions, assessments performed and documented by PRAVIN Carl.
--- NOTE | 2020-08-13 18:38 | NUR ---
Problems reprioritized. Patient report given, questions answered & plan of care reviewed with PRAVIN Barrios.
[2020-08-13 19:00] VITALS: BP 176/85
--- NOTE | 2020-08-13 19:30 | NUR ---
Patient has decided that he no longer wishes to stay and is once again stating that he is going to leave. Refuses to sign AMA papers. Patient is Alert and Oriented at this time. He stated that he will call the doctor tomorrow.
[2020-08-13] MEDS ORDERED: metoprolol tartrate 50mg tablet PO SCH (20:00)
[2020-08-13] MEDS ORDERED: albuterol 2.5 MG/3 ML nebule NEB PRN (20:00)
[2020-08-13] MEDS ORDERED: K and/or MAG REPLACEMENT MC SCH (20:00)
--- NOTE | 2020-08-13 20:11 | NUR ---
MESSAGE: Re: Colin Cardona rm [id number]. Patient left AMA refused to sign AMA papers, A&Ox4
[2020-08-13] MEDS ORDERED: hydrALAZINE 25 MG tablet PO SCH (21:00)
[2020-08-13] MEDS ORDERED: pregabalin 25mg capsule PO SCH (21:00)
[2020-08-13] MEDS ORDERED: pregabalin 75mg capsule PO SCH (21:00)
[2020-08-13] MEDS ORDERED: temazepam 15mg capsule PO PRN (21:00)
[2020-08-14] MEDS ORDERED: enoxaparin 40mg/0.4ml syringe SUBCUT SCH (08:00)
[2020-08-14] MEDS ORDERED: tamsulosin 0.4mg capsule PO SCH (08:00)
[2020-08-14] MEDS ORDERED: atorvastatin 20mg tablet PO SCH (08:00)
[2020-08-14] MEDS ORDERED: pantoprazole 40mg Tablet.DR PO SCH (08:00)
[2020-08-14] MEDS ORDERED: aspirin 325mg tablet PO SCH (08:30)
== END 2020-08-13 20:00 | disposition left against medical advice (07) | DRG 311 ==
LOC: ER 09:07 → ED HOLD 13:45 → PCU 3S 17:55
PROVIDERS: ADMIT Family Medicine; ATTEND Family Medicine
DX: I20.9 Angina pectoris, unspecified (principal); N17.9 Acute kidney failure, unspecified; E78.00 Pure hypercholesterolemia, unspecified; I12.9 Hypertensive chronic kidney disease with stage 1 through stage 4 chronic kidney disease, or unspecified chronic kidney disease; E11.22 Type 2 diabetes mellitus with diabetic chronic kidney disease; Z53.29 Procedure and treatment not carried out because of patient's decision for other reasons; N18.9 Chronic kidney disease, unspecified; E78.5 Hyperlipidemia, unspecified; K21.9 Gastro-esophageal reflux disease without esophagitis; M54.9 Dorsalgia, unspecified; Z87.440 Personal history of urinary (tract) infections; Z86.14 Personal history of Methicillin resistant Staphylococcus aureus infection
CPT/HCPCS: 36415; 71046; 72146; 80053; 82948; 83036; 83735; 83880; 84484; 85025; 85610; 87081; 93005; 99285; G0378; J7030

== ENCOUNTER 2021-01-12 09:17 | Emergency (ER) | payer MEDICARE, MEDICAID ==
[~2021-01-12] VITALS: Ht 175.3 cm; Wt 68.2 kg
[~2021-01-12 09:17] MED LIST changes: -ATOR-2 PO; +ATOR40TA72 PO; -DULO30CA52 PO; -GABA-532 PO; -ORPH100T2 PO; +PREG100C55 PO; -TRIA15CR61 TP
[2021-01-12 09:34] LABS: BASOPHILS % (AUTO) 0.5 % (0-1); EOSINOPHILS # (AUTO) 0.4 X10'3 (0-0.9); EOSINOPHILS % (AUTO) 5.5 % (0-6); HEMATOCRIT 43.9 % (42.0-52.0); HEMOGLOBIN 14.8 g/dl (14.0-17.9); LYMPHOCYTES # (AUTO) 1.9 X10'3 (1.1-4.8); LYMPHOCYTES % (AUTO) 29.7 % (21-51); MEAN CORPUSCULAR HEMOGLOBIN 29.4 PG (27.0-31.0); MEAN CORPUSCULAR HGB CONC 33.7 g/dL (33.0-36.5); MEAN CORPUSCULAR VOLUME 87.1 FL (78-98); MONOCYTES # (AUTO) 0.4 X10'3 (0-0.9); MONOCYTES % (AUTO) 6.8 % (2-12); NEUTROPHILS # (AUTO) 3.7 X10'3 (1.8-7.7); NEUTROPHILS % (AUTO) 57.5 % (42-75); PLATELET COUNT 128 X10'3 (140-440); RED BLOOD COUNT 5.04 X10'6 (4.70-6.10); RED CELL DISTRIBUTION WIDTH 15.7 % (11.5-14.5); WHITE BLOOD COUNT 6.5 X10'3 (4.5-11.0)
[2021-01-12 10:03] LABS: ALANINE AMINOTRANSFERASE 18 U/L (12-78); ALBUMIN 3.4 G/DL (3.4-5.0); ALBUMIN/GLOBULIN RATIO 0.7 (1.1-1.5); ALKALINE PHOSPHATASE 130 IU/L (46-116); ANION GAP 12 (8-16); ASPARTATE AMINO TRANSFERASE 16 U/L (10-37); BILIRUBIN,TOTAL 0.9 MG/DL (0.1-1.0); BLOOD UREA NITROGEN 24 MG/DL (7-18); BUN/CREATININE RATIO 16.1 (5.4-32.0); CALCIUM 9.2 MG/DL (8.5-10.1); CHLORIDE 106 MMOL/L (99-107); CREATININE 1.49 MG/DL (0.60-1.10); GLUCOSE 214 MG/DL (70-104); POTASSIUM 4.5 MMOL/L (3.5-5.1); SODIUM 139 MMOL/L (135-145); TOTAL CARBON DIOXIDE 21.5 MMOL/L (24-32); eGFR 46 ML/MIN
[2021-01-12] MEDS ORDERED: sucralfate 1gm/10ml UD suspension PO STA (10:12)
[2021-01-12] MEDS ORDERED: mag hydrox/Alum hydrox/simeth 30ml oral suspension PO ONE (10:15)
[2021-01-12] MEDS ORDERED: LIDOcaine Viscous 15ml cup MM ONE (10:15)
[2021-01-12 11:59] VITALS: BP 156/88
== END 2021-01-12 12:14 | disposition home or self-care (01) ==
LOC: ER 09:17
DX: R10.13 Epigastric pain (principal); K29.00 Acute gastritis without bleeding; R07.89 Other chest pain; M25.572 Pain in left ankle and joints of left foot; M79.605 Pain in left leg; M79.604 Pain in right leg; I10 Essential (primary) hypertension; E11.9 Type 2 diabetes mellitus without complications; K21.9 Gastro-esophageal reflux disease without esophagitis; E78.00 Pure hypercholesterolemia, unspecified; Z87.440 Personal history of urinary (tract) infections; Z86.14 Personal history of Methicillin resistant Staphylococcus aureus infection; Z79.899 Other long term (current) drug therapy; Z98.890 Other specified postprocedural states
CPT/HCPCS: 36415; 71045; 80053; 83880; 84484; 85025; 93005; 99285

== ENCOUNTER → 2021-04-24 | Emergency (ER) | payer MEDICARE, MEDICAID ==
[~2021-04-24] VITALS: Ht 175.3 cm; Wt 68.2 kg
[~2021-04-24] MED LIST changes: -ALBU18HF2 IH; -FLO0.4C PO; +GEMF600T89 PO; -HYDR-4069 PO; +INSU100I31 SQ; +LISI20TA28 PO
[2021-04-24 09:17] VITALS: BP 178/95
== END | disposition left against medical advice (07) ==
LOC: ER 09:05
DX: M25.512 Pain in left shoulder (principal); Z53.21 Procedure and treatment not carried out due to patient leaving prior to being seen by health care provider

== ENCOUNTER 2021-05-23 17:18 | Emergency (ER) | payer MEDICARE, MEDICAID ==
[~2021-05-23] VITALS: Ht 175.3 cm; Wt 68.2 kg
[2021-05-23 18:24] LABS: BASOPHILS % (AUTO) 0.4 % (0-1); EOSINOPHILS # (AUTO) 0.1 X10'3 (0-0.9); EOSINOPHILS % (AUTO) 2.4 % (0-6); HEMATOCRIT 42.4 % (42.0-52.0); HEMOGLOBIN 14.4 g/dl (14.0-17.9); MEAN CORPUSCULAR HEMOGLOBIN 29.5 PG (27.0-31.0); MEAN CORPUSCULAR HGB CONC 33.9 g/dL (33.0-36.5); MEAN PLATELET VOLUME 10.7 FL (7.4-10.4); MONOCYTES # (AUTO) 0.3 X10'3 (0-0.9); MONOCYTES % (AUTO) 5.1 % (2-12); NEUTROPHILS # (AUTO) 3.7 X10'3 (1.8-7.7); NEUTROPHILS % (AUTO) 60.1 % (42-75); PLATELET COUNT 133 X10'3 (140-440); RED BLOOD COUNT 4.87 X10'6 (4.70-6.10); WHITE BLOOD COUNT 6.2 X10'3 (4.5-11.0)
[2021-05-23 18:36] LABS: ALANINE AMINOTRANSFERASE 29 U/L (12-78); ALBUMIN 3.6 G/DL (3.4-5.0); ALBUMIN/GLOBULIN RATIO 0.8 (1.1-1.5); ALKALINE PHOSPHATASE 140 IU/L (46-116); ANION GAP 11 (8-16); ASPARTATE AMINO TRANSFERASE 11 U/L (10-37); BILIRUBIN,TOTAL 0.6 MG/DL (0.1-1.0); BLOOD UREA NITROGEN 21 MG/DL (7-18); BUN/CREATININE RATIO 12.7 (5.4-32.0); CHLORIDE 105 MMOL/L (99-107); CREATININE 1.65 MG/DL (0.60-1.10); GLUCOSE 348 MG/DL (70-104); POTASSIUM 4.1 MMOL/L (3.5-5.1); SODIUM 141 MMOL/L (135-145); TOTAL CARBON DIOXIDE 25.4 MMOL/L (24-32); TOTAL PROTEIN 8.3 G/DL (6.4-8.2); eGFR 41 ML/MIN
[2021-05-23 18:48] LABS: PLATELET ESTIMATE DECREASED
[2021-05-23 18:49] LABS: LARGE PLATELETS FEW
[2021-05-23] MEDS ORDERED: INSU100I31 SQ (20:39)
[2021-05-23 20:59] VITALS: BP 138/70
== END 2021-05-23 21:00 | disposition home or self-care (01) ==
LOC: ER 17:18
DX: E11.65 Type 2 diabetes mellitus with hyperglycemia (principal); R53.1 Weakness; E78.00 Pure hypercholesterolemia, unspecified; I10 Essential (primary) hypertension; K21.9 Gastro-esophageal reflux disease without esophagitis; Z87.440 Personal history of urinary (tract) infections; Z86.14 Personal history of Methicillin resistant Staphylococcus aureus infection; Z98.890 Other specified postprocedural states; Z79.4 Long term (current) use of insulin; Z79.899 Other long term (current) drug therapy
CPT/HCPCS: 36415; 80053; 82948; 85008; 85025; 93005; 99284

== ENCOUNTER 2021-06-09 15:03 | Emergency (ER) | payer MEDICARE, MEDICAID | END 2021-06-09 18:37 | disposition left against medical advice (07) | LOC: ER 15:03 | DX: M79.643 Pain in unspecified hand (principal); Z53.21 Procedure and treatment not carried out due to patient leaving prior to being seen by health care provider ==

== ENCOUNTER 2021-08-19 13:17 | Emergency (ER) | payer MEDICARE, MEDICAID ==
[~2021-08-19] VITALS: Ht 175.3 cm; Wt 69.0 kg
[2021-08-19 13:20] VITALS: BP 132/93
[2021-08-19 14:35] LABS: BASOPHILS % (AUTO) 0.6 % (0-1); EOSINOPHILS # (AUTO) 0.1 X10'3 (0-0.9); EOSINOPHILS % (AUTO) 0.7 % (0-6); HEMATOCRIT 42.8 % (42.0-52.0); HEMOGLOBIN 14.4 g/dl (14.0-17.9); LYMPHOCYTES % (AUTO) 26.8 % (21-51); MEAN CORPUSCULAR HGB CONC 33.6 g/dL (33.0-36.5); MEAN CORPUSCULAR VOLUME 83.5 FL (78-98); MEAN PLATELET VOLUME 9.6 FL (7.4-10.4); MONOCYTES # (AUTO) 0.4 X10'3 (0-0.9); NEUTROPHILS # (AUTO) 4.8 X10'3 (1.8-7.7); NEUTROPHILS % (AUTO) 65.9 % (42-75); PLATELET COUNT 152 X10'3 (140-440); RED BLOOD COUNT 5.12 X10'6 (4.70-6.10); WHITE BLOOD COUNT 7.4 X10'3 (4.5-11.0)
[2021-08-19 14:50] LABS: ALANINE AMINOTRANSFERASE 22 U/L (12-78); ALBUMIN 3.5 G/DL (3.4-5.0); ALBUMIN/GLOBULIN RATIO 0.7 (1.1-1.5); ALKALINE PHOSPHATASE 142 IU/L (46-116); ANION GAP 12 (8-16); ASPARTATE AMINO TRANSFERASE 15 U/L (10-37); BILIRUBIN,TOTAL 0.7 MG/DL (0.1-1.0); BLOOD UREA NITROGEN 27 MG/DL (7-18); CALCIUM 8.9 MG/DL (8.5-10.1); CHLORIDE 101 MMOL/L (99-107); CREATININE 1.93 MG/DL (0.60-1.10); GLUCOSE 409 MG/DL (70-104); POTASSIUM 4.1 MMOL/L (3.5-5.1); SODIUM 134 MMOL/L (135-145); TOTAL CARBON DIOXIDE 21.5 MMOL/L (24-32); TOTAL PROTEIN 8.6 G/DL (6.4-8.2); eGFR 34 ML/MIN
== END 2021-08-19 16:33 | disposition left against medical advice (07) ==
LOC: ER 13:18
DX: R06.02 Shortness of breath (principal); Z53.21 Procedure and treatment not carried out due to patient leaving prior to being seen by health care provider
CPT/HCPCS: 36415; 71045; 80053; 83880; 84484; 85025

== ENCOUNTER 2022-04-22 08:49 | Emergency (ER) | payer MEDICARE, MEDICAID ==
[~2022-04-22] VITALS: Ht 175.3 cm; Wt 69.0 kg
[2022-04-22 09:07] VITALS: BP 136/91
== END 2022-04-22 10:49 | disposition left against medical advice (07) ==
LOC: ER 08:50
DX: R21 Rash and other nonspecific skin eruption (principal); Z53.21 Procedure and treatment not carried out due to patient leaving prior to being seen by health care provider

== ENCOUNTER 2022-06-13 10:34 | Emergency (ER) | payer MEDICARE, MEDICAID ==
[~2022-06-13] VITALS: Ht 172.7 cm; Wt 67.3 kg
[2022-06-13 10:43] VITALS: BP 113/79
[2022-06-13 11:29] LABS: BASOPHILS % (AUTO) 0.6 % (0-1); EOSINOPHILS % (AUTO) 0.2 % (0-6); HEMATOCRIT 45.3 % (42.0-52.0); HEMOGLOBIN 15.4 g/dl (14.0-17.9); LYMPHOCYTES # (AUTO) 1.5 X10'3 (1.1-4.8); LYMPHOCYTES % (AUTO) 26.8 % (21-51); MEAN CORPUSCULAR HEMOGLOBIN 28.2 PG (27.0-31.0); MEAN CORPUSCULAR VOLUME 82.9 FL (78-98); MEAN PLATELET VOLUME 8.5 FL (7.4-10.4); MONOCYTES # (AUTO) 0.6 X10'3 (0-0.9); NEUTROPHILS # (AUTO) 3.5 X10'3 (1.8-7.7); NEUTROPHILS % (AUTO) 62.4 % (42-75); PLATELET COUNT 107 X10'3 (140-440); RED BLOOD COUNT 5.47 X10'6 (4.70-6.10); RED CELL DISTRIBUTION WIDTH 17.8 % (11.5-14.5); WHITE BLOOD COUNT 5.5 X10'3 (4.5-11.0)
[2022-06-13 11:56] LABS: ALANINE AMINOTRANSFERASE 28 U/L (12-78); ALBUMIN 3.3 G/DL (3.4-5.0); ALBUMIN/GLOBULIN RATIO 0.8 (1.1-1.5); ALKALINE PHOSPHATASE 96 IU/L (46-116); ANION GAP 12 (8-16); ASPARTATE AMINO TRANSFERASE 27 U/L (10-37); BILIRUBIN,TOTAL 0.5 MG/DL (0.1-1.0); BLOOD UREA NITROGEN 39 MG/DL (7-18); BUN/CREATININE RATIO 18.5 (5.4-32.0); CALCIUM 9.3 MG/DL (8.5-10.1); CHLORIDE 104 MMOL/L (99-107); CREATININE 2.11 MG/DL (0.60-1.10); GLUCOSE 168 MG/DL (70-104); POTASSIUM 4.5 MMOL/L (3.5-5.1); SODIUM 138 MMOL/L (135-145); TOTAL CARBON DIOXIDE 22.1 MMOL/L (24-32); TOTAL PROTEIN 7.6 G/DL (6.4-8.2); eGFR 31 ML/MIN
--- NOTE | 2022-06-13 14:00 | NUR ---
Patient left without being seen. Attempted to contact patient at which listed phone number for the [facility]. unable to get a hold of patient. Dr. Salinas aware.
== END 2022-06-13 14:00 | disposition left against medical advice (07) ==
LOC: ER 10:34
DX: R05.9 Cough, unspecified (principal); Z53.21 Procedure and treatment not carried out due to patient leaving prior to being seen by health care provider
CPT/HCPCS: 36415; 71046; 80053; 83605; 83880; 85025; 87040; J7030

== ENCOUNTER 2022-06-14 11:42 | Emergency (ER) | payer MEDICARE, MEDICAID | END 2022-06-14 12:30 | disposition left against medical advice (07) | LOC: ER 11:42 | DX: J11.1 Influenza due to unidentified influenza virus with other respiratory manifestations (principal); Z53.21 Procedure and treatment not carried out due to patient leaving prior to being seen by health care provider ==

== ENCOUNTER 2022-08-13 11:45 | Emergency (ER) | payer MEDICARE, MEDICAID ==
[~2022-08-13] VITALS: Ht 175.3 cm; Wt 68.2 kg
[2022-08-13 11:58] VITALS: BP 172/98
[2022-08-13 12:28] LABS: BASOPHILS % (AUTO) 0.6 % (0-1); EOSINOPHILS # (AUTO) 0.1 X10'3 (0-0.9); EOSINOPHILS % (AUTO) 1.1 % (0-6); HEMATOCRIT 45.9 % (42.0-52.0); HEMOGLOBIN 15.1 g/dl (14.0-17.9); LYMPHOCYTES # (AUTO) 2.1 X10'3 (1.1-4.8); MEAN CORPUSCULAR HEMOGLOBIN 27.9 PG (27.0-31.0); MEAN CORPUSCULAR HGB CONC 32.9 g/dL (33.0-36.5); MEAN CORPUSCULAR VOLUME 84.9 FL (78-98); MEAN PLATELET VOLUME 8.8 FL (7.4-10.4); MONOCYTES # (AUTO) 0.4 X10'3 (0-0.9); MONOCYTES % (AUTO) 5.3 % (2-12); NEUTROPHILS # (AUTO) 4.3 X10'3 (1.8-7.7); PLATELET COUNT 148 X10'3 (140-440); RED CELL DISTRIBUTION WIDTH 16.7 % (11.5-14.5); WHITE BLOOD COUNT 6.9 X10'3 (4.5-11.0)
[2022-08-13 12:48] LABS: ALANINE AMINOTRANSFERASE 15 U/L (12-78); ALBUMIN 3.4 G/DL (3.4-5.0); ALBUMIN/GLOBULIN RATIO 0.8 (1.1-1.5); ALKALINE PHOSPHATASE 110 IU/L (46-116); ANION GAP 12 (8-16); ASPARTATE AMINO TRANSFERASE 12 U/L (10-37); BILIRUBIN,TOTAL 0.7 MG/DL (0.1-1.0); BLOOD UREA NITROGEN 24 MG/DL (7-18); BUN/CREATININE RATIO 14.5 (5.4-32.0); CALCIUM 9.1 MG/DL (8.5-10.1); CHLORIDE 108 MMOL/L (99-107); CREATININE 1.66 MG/DL (0.60-1.10); GLUCOSE 198 MG/DL (70-104); MAGNESIUM 2.2 MG/DL (1.5-2.4); POTASSIUM 4.1 MMOL/L (3.5-5.1); SODIUM 141 MMOL/L (135-145); TOTAL CARBON DIOXIDE 20.9 MMOL/L (24-32); TOTAL PROTEIN 7.7 G/DL (6.4-8.2); eGFR 41 ML/MIN
== END 2022-08-13 15:26 | disposition left against medical advice (07) ==
LOC: ER 11:47
DX: R07.9 Chest pain, unspecified (principal); Z53.21 Procedure and treatment not carried out due to patient leaving prior to being seen by health care provider
CPT/HCPCS: 36415; 71045; 80053; 83735; 83880; 84484; 85025; 93005

== ENCOUNTER 2022-09-15 12:05 | Emergency (ER) | payer MEDICARE, MEDICAID ==
[~2022-09-15] VITALS: Ht 175.3 cm; Wt 68.2 kg
[2022-09-15 12:26] LABS: BASOPHILS % (AUTO) 0.7 % (0-1); EOSINOPHILS # (AUTO) 0.2 X10'3 (0-0.9); EOSINOPHILS % (AUTO) 3.1 % (0-6); HEMATOCRIT 44.5 % (42.0-52.0); HEMOGLOBIN 14.4 g/dl (14.0-17.9); LYMPHOCYTES # (AUTO) 2.1 X10'3 (1.1-4.8); LYMPHOCYTES % (AUTO) 34.2 % (21-51); MEAN CORPUSCULAR HEMOGLOBIN 27.5 PG (27.0-31.0); MEAN CORPUSCULAR HGB CONC 32.4 g/dL (33.0-36.5); MEAN CORPUSCULAR VOLUME 84.7 FL (78-98); MEAN PLATELET VOLUME 9.2 FL (7.4-10.4); MONOCYTES # (AUTO) 0.5 X10'3 (0-0.9); MONOCYTES % (AUTO) 7.6 % (2-12); NEUTROPHILS # (AUTO) 3.4 X10'3 (1.8-7.7); NEUTROPHILS % (AUTO) 54.4 % (42-75); PLATELET COUNT 167 X10'3 (140-440); RED BLOOD COUNT 5.25 X10'6 (4.70-6.10); RED CELL DISTRIBUTION WIDTH 16.7 % (11.5-14.5); WHITE BLOOD COUNT 6.2 X10'3 (4.5-11.0)
[2022-09-15 12:44] LABS: ALANINE AMINOTRANSFERASE 18 U/L (12-78); ALBUMIN 3.5 G/DL (3.4-5.0); ALBUMIN/GLOBULIN RATIO 0.8 (1.1-1.5); ALKALINE PHOSPHATASE 104 IU/L (46-116); ANION GAP 8 (8-16); ASPARTATE AMINO TRANSFERASE 13 U/L (10-37); BILIRUBIN,TOTAL 0.5 MG/DL (0.1-1.0); BLOOD UREA NITROGEN 34 MG/DL (7-18); BUN/CREATININE RATIO 22.2 (5.4-32.0); CALCIUM 9.3 MG/DL (8.5-10.1); CHLORIDE 106 MMOL/L (99-107); CREATININE 1.53 MG/DL (0.60-1.10); POTASSIUM 4.4 MMOL/L (3.5-5.1); SODIUM 138 MMOL/L (135-145); TOTAL CARBON DIOXIDE 24.3 MMOL/L (24-32); TOTAL PROTEIN 7.8 G/DL (6.4-8.2); eGFR 45 ML/MIN
[2022-09-15 12:54] LABS: MAGNESIUM 2.3 MG/DL (1.5-2.4)
[2022-09-15 12:55] LABS: GLUCOSE 245 MG/DL (70-104)
[2022-09-15] MEDS ORDERED: LIDOcaine Viscous 15ml cup MM ONE (13:45)
[2022-09-15] MEDS ORDERED: sucralfate 1 gm tablet PO ONE (13:45)
[2022-09-15] MEDS ORDERED: mag hydrox/Alum hydrox/simeth 30ml oral suspension PO ONE (13:45)
[2022-09-15 14:26] LABS: LIPASE 371 U/L (73-393)
[2022-09-15 14:50] VITALS: BP 166/90
== END 2022-09-15 15:02 | disposition home or self-care (01) ==
LOC: ER 12:06
DX: R07.89 Other chest pain (principal); M79.605 Pain in left leg; E78.00 Pure hypercholesterolemia, unspecified; I10 Essential (primary) hypertension; K21.9 Gastro-esophageal reflux disease without esophagitis; E11.9 Type 2 diabetes mellitus without complications
CPT/HCPCS: 36415; 71045; 80053; 83690; 83735; 83880; 84484; 85025; 93005; 99285

== ENCOUNTER 2023-02-07 14:22 | Emergency (ER) | payer MEDICARE, MEDICAID ==
[~2023-02-07] VITALS: Ht 170.2 cm; Wt 80.0 kg
[2023-02-07] MEDS ORDERED: morphine 4 MG/ML inj SYRINge IM ONE (16:25)
[2023-02-07] MEDS ORDERED: ondansetron 4mg rapidly disintigrating tab PO ONE (16:25)
[2023-02-07] MEDS ORDERED: orphenadrine citrate 60mg/2ml inj. IM ONE (16:25)
[2023-02-07 16:45] VITALS: BP 177/100
[2023-02-07] MEDS ORDERED: CYCL-1 PO (16:59)
[2023-02-07] MEDS ORDERED: ACET-1025 PO (16:59)
[2023-02-07] MEDS ORDERED: cyclobenzaprine 10mg tablet PO ONE (17:00)
== END 2023-02-07 17:25 | disposition home or self-care (01) ==
LOC: ER 14:22
DX: M54.12 Radiculopathy, cervical region (principal); M54.2 Cervicalgia; E78.00 Pure hypercholesterolemia, unspecified; I10 Essential (primary) hypertension; K21.9 Gastro-esophageal reflux disease without esophagitis; E11.9 Type 2 diabetes mellitus without complications
CPT/HCPCS: 96372; 99283; J2270

== ENCOUNTER 2023-04-17 15:21 | Emergency (ER) | payer MEDICARE, MEDICAID ==
[~2023-04-17] VITALS: Ht 175.3 cm; Wt 69.1 kg
[~2023-04-17 15:21] MED LIST changes: +CYCL-1 PO; -DICL100G30 TP; +DICL100G59 TP
[2023-04-17 15:33] VITALS: BP 173/102; PULSE 96; O2SAT 98
[2023-04-17] MEDS ORDERED: NAPR-56 PO (17:15)
[2023-04-17] MEDS ORDERED: ketorolac trometh. 30mg/ml inj. IM ONE (17:35)
[2023-04-17 17:39] VITALS: RESP 18
== END 2023-04-17 17:43 | disposition home or self-care (01) ==
LOC: ER 15:22
DX: M25.561 Pain in right knee (principal); I10 Essential (primary) hypertension; K21.9 Gastro-esophageal reflux disease without esophagitis; E11.9 Type 2 diabetes mellitus without complications; E78.00 Pure hypercholesterolemia, unspecified; Z79.899 Other long term (current) drug therapy; Z79.1 Long term (current) use of non-steroidal anti-inflammatories (NSAID); Z79.84 Long term (current) use of oral hypoglycemic drugs
CPT/HCPCS: 73564; 96372; 99283; J1885

== ENCOUNTER 2023-08-22 06:49 | Day surgery (SDC) | payer MEDICARE, MEDICAID ==
[2023-08-17 12:28] LABS: BASOPHILS % (AUTO) 0.7 % (0-1); EOSINOPHILS # (AUTO) 0.3 X10'3 (0-0.9); EOSINOPHILS % (AUTO) 4.1 % (0-6); LYMPHOCYTES # (AUTO) 2.2 X10'3 (1.1-4.8); LYMPHOCYTES % (AUTO) 33.3 % (21-51); MEAN CORPUSCULAR HEMOGLOBIN 27.3 PG (27.0-31.0); MEAN CORPUSCULAR VOLUME 82.9 FL (78-98); MONOCYTES # (AUTO) 0.3 X10'3 (0-0.9); MONOCYTES % (AUTO) 5.3 % (2-12); NEUTROPHILS # (AUTO) 3.7 X10'3 (1.8-7.7); NEUTROPHILS % (AUTO) 56.6 % (42-75); PRE OP HEMATOCRIT 46.4 % (42.0-52.0); PRE OP HEMOGLOBIN 15.3 g/dL (14.0-17.9); PRE OP PLATELET COUNT 170 X10'3 (140-440); PRE OP WHITE BLOOD COUNT 6.5 10'3 (4.8-10.8); RED BLOOD COUNT 5.59 X10'6 (4.70-6.10); RED CELL DISTRIBUTION WIDTH 16.1 % (11.5-14.5)
[2023-08-17 12:44] LABS: ALBUMIN 3.7 G/DL (3.4-5.0); ALBUMIN/GLOBULIN RATIO 0.8 (1.1-1.5); ALKALINE PHOSPHATASE 134 IU/L (46-116); BLOOD UREA NITROGEN 33 MG/DL (7-18); BUN/CREATININE RATIO 20.9 (10.0-20.0); CHLORIDE 103 MMOL/L (99-107); CREATININE 1.58 MG/DL (0.60-1.10); PRE OP ALT 20 U/L (30-65); PRE OP ANION GAP 10 (8-16); PRE OP AST 12 U/L (10-37); PRE OP BILIRUB, TOTAL 0.5 MG/DL (0.0-1.0); PRE OP GLUCOSE 116 MG/DL (70-104); PRE OP POTASSIUM 4.3 MMOL/L (3.4-5.1); PRE OP SODIUM 137 MMOL/L (135-145); TOTAL CARBON DIOXIDE 23.8 MMOL/L (24-32); TOTAL PROTEIN 8.2 G/DL (6.4-8.2); eGFR 43 ML/MIN
[~2023-08-22] VITALS: Ht 167.6 cm; Wt 66.0 kg
[2023-08-22] VITALS (15 sets, daily range): BP systolic 132–200; BP diastolic 73–106; PULSE 58–70; RESP 12–16; TEMP 96.2; O2SAT 89–100
[~2023-08-22 06:49] MED LIST changes: +APIX5TAB3 PO; +ASPI-1397 PO; -ATOR40TA72 PO; -CYCL-1 PO; +DAPA10TA PO; -DICL100G59 TP; +DOCUMENT DATE & TIME OF BETA-BLOCKER PO ONE; -GEMF600T89 PO; -INSU100I31 SQ; -LISI20TA28 PO; -PREG100C55 PO; +PREG100C56 PO; +TRAM50TA2 PO; +cefazolin 2gm/D5W 100mL 100 ML IV ONE; +famotidine 20mg tablet PO ONE; +ringers solution, lacted 1,000 ML IV ONE
[2023-08-22] MEDS ORDERED: morphine 4 MG/ML inj SYRINge IV PRN (08:45)
[2023-08-22] MEDS ORDERED: ringers solution, lacted 1,000 ML IV SCH (08:45)
[2023-08-22] MEDS ORDERED: labetalol 20mg/4ml (5mg/ml) syringe IV PRN (08:45)
[2023-08-22] MEDS ORDERED: morphine 2 MG/ML inj. syringe IV PRN (08:45)
[2023-08-22] MEDS ORDERED: ondansetron/PF 4mg/2ml inj IV PRN (08:45)
[2023-08-22] MEDS ORDERED: fentaNYL/PF 50MCG/1 ML 2ML syringe ONE (09:48)
[2023-08-22] MEDS ORDERED: midazolam 1 mg/ML 2ml injection ONE (09:49)
[2023-08-22] MEDS ORDERED: BUPIVAcaine/PF 2.5mg/ml (0.25%) 10ml vial ONE (09:59)
[2023-08-22] MEDS ORDERED: BUPIVAcaine/PF 2.5mg/ml (0.25%) 10ml vial IJ ONE (10:30)
[2023-08-22] MEDS: hydrALAZINE 20mg/ml inj. IV PRN ×2 (11:06→11:27)
== END 2023-08-22 12:04 | disposition home or self-care (01) ==
LOC: PAS 06:49
PROVIDERS: ATTEND Orthopaedic Surgery Hand Surgery
DX: G56.01 Carpal tunnel syndrome, right upper limb (principal); M19.012 Primary osteoarthritis, left shoulder; M47.816 Spondylosis without myelopathy or radiculopathy, lumbar region; I25.10 Atherosclerotic heart disease of native coronary artery without angina pectoris; I11.0 Hypertensive heart disease with heart failure; I50.9 Heart failure, unspecified; E11.9 Type 2 diabetes mellitus without complications; K21.9 Gastro-esophageal reflux disease without esophagitis; G30.9 Alzheimer's disease, unspecified; F02.80 Dementia in other diseases classified elsewhere, unspecified severity, without behavioral disturbance, psychotic disturbance, mood disturbance, and anxiety; Z79.899 Other long term (current) drug therapy; Z79.4 Long term (current) use of insulin; Z98.890 Other specified postprocedural states; Z95.1 Presence of aortocoronary bypass graft
CPT/HCPCS: 36415; 64721; 80053; 82948; 85025; J0360; J0690; J2250; J2270; J3010; J3490; J7030; J7120; Z7506; Z7512; A4215

== ENCOUNTER 2023-08-22 12:24 | Emergency (ER) | payer MEDICARE, MEDICAID ==
[~2023-08-22] VITALS: Ht 175.3 cm; Wt 68.2 kg
[~2023-08-22 12:24] MED LIST changes: -DOCUMENT DATE & TIME OF BETA-BLOCKER PO ONE; -cefazolin 2gm/D5W 100mL 100 ML IV ONE; -famotidine 20mg tablet PO ONE; -ringers solution, lacted 1,000 ML IV ONE
[2023-08-22 12:40] VITALS: BP 147/90; PULSE 78; RESP 18; TEMP 97.4; O2SAT 100
[2023-08-22 12:58] LABS: BASOPHILS % (AUTO) 0.5 % (0-1); EOSINOPHILS # (AUTO) 0.2 X10'3 (0-0.9); EOSINOPHILS % (AUTO) 2.4 % (0-6); HEMATOCRIT 45.7 % (42.0-52.0); HEMOGLOBIN 14.9 g/dl (14.0-17.9); LYMPHOCYTES # (AUTO) 2.4 X10'3 (1.1-4.8); LYMPHOCYTES % (AUTO) 29.1 % (21-51); MEAN CORPUSCULAR HEMOGLOBIN 27.3 PG (27.0-31.0); MEAN CORPUSCULAR HGB CONC 32.7 g/dL (33.0-36.5); MEAN CORPUSCULAR VOLUME 83.5 FL (78-98); MONOCYTES # (AUTO) 0.4 X10'3 (0-0.9); MONOCYTES % (AUTO) 4.7 % (2-12); NEUTROPHILS # (AUTO) 5.2 X10'3 (1.8-7.7); NEUTROPHILS % (AUTO) 63.3 % (42-75); PLATELET COUNT 146 X10'3 (140-440); RED BLOOD COUNT 5.48 X10'6 (4.70-6.10); RED CELL DISTRIBUTION WIDTH 16.3 % (11.5-14.5); WHITE BLOOD COUNT 8.2 X10'3 (4.5-11.0)
[2023-08-22 13:09] LABS: ALANINE AMINOTRANSFERASE 12 U/L (12-78); ALBUMIN 3.3 G/DL (3.4-5.0); ALBUMIN/GLOBULIN RATIO 0.7 (1.1-1.5); ALKALINE PHOSPHATASE 140 IU/L (46-116); ANION GAP 8 (8-16); ASPARTATE AMINO TRANSFERASE 16 U/L (10-37); BILIRUBIN,TOTAL 0.5 MG/DL (0.1-1.0); BLOOD UREA NITROGEN 31 MG/DL (7-18); BUN/CREATININE RATIO 21.7 (10.0-20.0); CALCIUM 9.1 MG/DL (8.5-10.1); CHLORIDE 105 MMOL/L (99-107); CREATININE 1.43 MG/DL (0.60-1.10); GLUCOSE 91 MG/DL (70-104); POTASSIUM 4.5 MMOL/L (3.5-5.1); SODIUM 139 MMOL/L (135-145); TOTAL CARBON DIOXIDE 26.2 MMOL/L (24-32); TOTAL PROTEIN 8.3 G/DL (6.4-8.2); eCRCL 44 ML/MIN; eGFR 48 ML/MIN
[2023-08-22 13:16] LABS: PRO BRAIN NATRIURETIC PEPTIDE 248 PG/ML (0-125)
== END 2023-08-22 16:13 | disposition left against medical advice (07) ==
LOC: ER 12:24
DX: R07.89 Other chest pain (principal); Z53.21 Procedure and treatment not carried out due to patient leaving prior to being seen by health care provider
CPT/HCPCS: 36415; 80053; 83880; 84484; 85025; 93005; 99281

== ENCOUNTER 2023-09-02 10:08 | Emergency (ER) | payer MEDICARE, MEDICAID ==
[~2023-09-02] VITALS: Ht 175.3 cm; Wt 66.6 kg
[2023-09-02 10:49] VITALS: BP 148/88; PULSE 70; RESP 16; O2SAT 97
[2023-09-02 14:05] VITALS: TEMP 98.1
== END 2023-09-02 14:06 | disposition left against medical advice (07) ==
LOC: ER 10:08
DX: M79.601 Pain in right arm (principal); Z53.21 Procedure and treatment not carried out due to patient leaving prior to being seen by health care provider
CPT/HCPCS: 99281

== ENCOUNTER 2023-09-24 12:48 | Emergency (ER) | payer MEDICARE, MEDICAID ==
[~2023-09-24] VITALS: Ht 175.3 cm; Wt 64.0 kg
[~2023-09-24 12:48] MED LIST changes: +DAPA10TA; +EMPA25TA PO; +HYDR-3964; +LINE600T14 PO; +METF-1203 PO; +PER5325T; +SEMA7TAB2 PO
[2023-09-24 15:16] VITALS: BP 155/74; PULSE 81; RESP 17; TEMP 98.2; O2SAT 98
== END 2023-09-24 15:26 | disposition home or self-care (01) ==
LOC: ER 12:49
DX: S20.211A Contusion of right front wall of thorax, initial encounter (principal); E78.00 Pure hypercholesterolemia, unspecified; I10 Essential (primary) hypertension; K21.9 Gastro-esophageal reflux disease without esophagitis; E11.9 Type 2 diabetes mellitus without complications; Z79.899 Other long term (current) drug therapy; Z79.82 Long term (current) use of aspirin; W19.XXXA Unspecified fall, initial encounter; Y93.89 Activity, other specified; Y92.89 Other specified places as the place of occurrence of the external cause; Y99.8 Other external cause status
CPT/HCPCS: 71101; 99284

== ENCOUNTER → 2023-10-19 | Emergency (ER) | payer MEDICARE, MEDICAID ==
[~2023-10-19] VITALS: Ht 172.7 cm; Wt 65.0 kg
[2023-10-19 12:46] VITALS: BP 186/105; PULSE 88; RESP 16; TEMP 97.5; O2SAT 97
[2023-10-19 13:39] LABS: EOSINOPHILS # (AUTO) 0.1 X10'3 (0-0.9); MEAN CORPUSCULAR HEMOGLOBIN 27.1 PG (27.0-31.0); MONOCYTES # (AUTO) 0.4 X10'3 (0-0.9); PLATELET COUNT 158 X10'3 (140-440)
[2023-10-19 13:40] LABS: BASOPHILS % (AUTO) 0.5 % (0-1); EOSINOPHILS % (AUTO) 1.5 % (0-6); HEMOGLOBIN 13.8 g/dl (14.0-17.9); LYMPHOCYTES # (AUTO) 1.8 X10'3 (1.1-4.8); LYMPHOCYTES % (AUTO) 30.6 % (21-51); MEAN CORPUSCULAR HGB CONC 32.8 g/dL (33.0-36.5); MEAN CORPUSCULAR VOLUME 82.7 FL (78-98); MEAN PLATELET VOLUME 10.2 FL (7.4-10.4); MONOCYTES % (AUTO) 6.2 % (2-12); NEUTROPHILS # (AUTO) 3.6 X10'3 (1.8-7.7); NEUTROPHILS % (AUTO) 61.2 % (42-75); RED BLOOD COUNT 5.08 X10'6 (4.70-6.10); RED CELL DISTRIBUTION WIDTH 17.4 % (11.5-14.5); WHITE BLOOD COUNT 5.9 X10'3 (4.5-11.0)
[2023-10-19 13:47] LABS: ALBUMIN 3.8 G/DL (3.4-5.0); ANION GAP 8 (8-16); BLOOD UREA NITROGEN 24 MG/DL (7-18); BUN/CREATININE RATIO 15.8 (10.0-20.0); CALCIUM 9.1 MG/DL (8.5-10.1); CHLORIDE 105 MMOL/L (99-107); CREATININE 1.52 MG/DL (0.60-1.10); GLUCOSE 122 MG/DL (70-104); POTASSIUM 4.3 MMOL/L (3.5-5.1); PRO BRAIN NATRIURETIC PEPTIDE 241 PG/ML (0-450); SODIUM 142 MMOL/L (135-145); TOTAL CARBON DIOXIDE 28.6 MMOL/L (24-32); eCRCL 39 ML/MIN; eGFR 45 ML/MIN
[2023-10-19 14:31] LABS: APTT 26 SECONDS (22-32); PROTHROMBIN TIME 10.3 SECONDS (9.0-12.0)
== END | disposition left against medical advice (07) ==
LOC: ER 12:23
DX: I10 Essential (primary) hypertension (principal); R07.89 Other chest pain; Z53.21 Procedure and treatment not carried out due to patient leaving prior to being seen by health care provider
CPT/HCPCS: 36415; 80048; 83735; 83880; 84484; 85025; 85610; 85730; 93005; 99281

== ENCOUNTER 2024-01-12 08:45 | Emergency (ER) | payer MEDICARE, MEDICAID ==
[~2024-01-12] VITALS: Ht 175.3 cm; Wt 65.9 kg
[2024-01-12 09:22] VITALS: TEMP 98.1
[2024-01-12 10:25] LABS: BASOPHILS % (AUTO) 0.5 % (0-1); EOSINOPHILS # (AUTO) 0.2 X10'3 (0-0.9); EOSINOPHILS % (AUTO) 2.7 % (0-6); HEMATOCRIT 42.9 % (42.0-52.0); HEMOGLOBIN 14.3 g/dl (14.0-17.9); LYMPHOCYTES # (AUTO) 1.5 X10'3 (1.1-4.8); LYMPHOCYTES % (AUTO) 22.6 % (21-51); MEAN CORPUSCULAR HEMOGLOBIN 28.5 PG (27.0-31.0); MEAN CORPUSCULAR HGB CONC 33.4 g/dL (33.0-36.5); MEAN CORPUSCULAR VOLUME 85.5 FL (78-98); MEAN PLATELET VOLUME 9.8 FL (7.4-10.4); MONOCYTES # (AUTO) 0.4 X10'3 (0-0.9); NEUTROPHILS # (AUTO) 4.6 X10'3 (1.8-7.7); NEUTROPHILS % (AUTO) 68.2 % (42-75); PLATELET COUNT 183 X10'3 (140-440); RED BLOOD COUNT 5.02 X10'6 (4.70-6.10); RED CELL DISTRIBUTION WIDTH 18.4 % (11.5-14.5); WHITE BLOOD COUNT 6.7 X10'3 (4.5-11.0)
[2024-01-12 10:36] LABS: ALANINE AMINOTRANSFERASE 26 U/L (12-78); ALBUMIN 3.9 G/DL (3.4-5.0); ALBUMIN/GLOBULIN RATIO 0.8 (1.1-1.5); ALKALINE PHOSPHATASE 123 IU/L (46-116); ANION GAP 8 (8-16); ASPARTATE AMINO TRANSFERASE 17 U/L (10-37); BLOOD UREA NITROGEN 31 MG/DL (7-18); BUN/CREATININE RATIO 17.2 (10.0-20.0); CALCIUM 9.6 MG/DL (8.5-10.1); CHLORIDE 103 MMOL/L (99-107); GLUCOSE 152 MG/DL (70-104); LIPASE 56 U/L (16-77); POTASSIUM 4.4 MMOL/L (3.5-5.1); SODIUM 137 MMOL/L (135-145); TOTAL CARBON DIOXIDE 26.5 MMOL/L (24-32); eCRCL 33 ML/MIN; eGFR 37 ML/MIN
[2024-01-12 12:49] LABS: BILIRUBIN,URINE NEGATIVE (Neg); CLARITY,URINE CLOUDY (Clear); COLOR,URINE YELLOW (Yellow); GLUCOSE, URINE NEGATIVE (Neg); KETONES,URINE NEGATIVE (Neg); LEUKOCYTE ESTERASE ,URINE SMALL (Neg); NITRITES, URINE NEGATIVE (Neg); OCCULT BLOOD,URINE MODERATE (Neg); PROTEIN,URINE 100 mg/dl (Neg); UROBILINOGEN,URINE 0.2 E.U/dL (0.2-1.0)
[2024-01-12 12:57] LABS: UA COLLECTION TYPE CLN CATCH MIDSTREAM
[2024-01-12 13:05] LABS: WBC CLUMPS,URINE FEW /HPF (NEGATIVE)
[2024-01-12 13:08] LABS: BACTERIA,URINE 3+ /HPF (Neg); WBC,URINE TNTC /HPF (0-4)
[2024-01-12 13:18] LABS: SQUAMOUS EPITHELIAL CELL,UR FEW /LPF (FEW)
[2024-01-12 13:20] LABS: HYALINE CASTS 0-3 /LPF (NEGATIVE)
[2024-01-12 14:20] VITALS: BP 211/113; PULSE 78; RESP 18; O2SAT 100
== END 2024-01-12 14:24 | disposition home or self-care (01) ==
LOC: ER 08:46
DX: R10.84 Generalized abdominal pain (principal); E78.00 Pure hypercholesterolemia, unspecified; I10 Essential (primary) hypertension; K21.9 Gastro-esophageal reflux disease without esophagitis; E11.9 Type 2 diabetes mellitus without complications; Z79.899 Other long term (current) drug therapy; Z79.82 Long term (current) use of aspirin
CPT/HCPCS: 36415; 74176; 80053; 81001; 83690; 85025; 87077; 87088; 87186; 99284

== ENCOUNTER 2024-02-16 20:58 | Emergency (ER) | payer MEDICARE, MEDICAID ==
[~2024-02-16] VITALS: Ht 175.3 cm; Wt 65.3 kg
[2024-02-16 21:04] VITALS: TEMP 97.7
[2024-02-16 21:21] LABS: EOSINOPHILS # (AUTO) 0.3 X10'3 (0-0.9); HEMOGLOBIN 13.1 g/dl (14.0-17.9); NEUTROPHILS # (AUTO) 3.2 X10'3 (1.8-7.7); WHITE BLOOD COUNT 6.1 X10'3 (4.5-11.0)
[2024-02-16 21:24] LABS: BASOPHILS % (AUTO) 0.5 % (0-1); EOSINOPHILS % (AUTO) 4.9 % (0-6); HEMATOCRIT 39.5 % (42.0-52.0); LYMPHOCYTES # (AUTO) 2.1 X10'3 (1.1-4.8); LYMPHOCYTES % (AUTO) 35.2 % (21-51); MEAN CORPUSCULAR HEMOGLOBIN 28.4 PG (27.0-31.0); MEAN CORPUSCULAR HGB CONC 33.1 g/dL (33.0-36.5); MEAN PLATELET VOLUME 9.3 FL (7.4-10.4); MONOCYTES # (AUTO) 0.5 X10'3 (0-0.9); MONOCYTES % (AUTO) 7.7 % (2-12); NEUTROPHILS % (AUTO) 51.7 % (42-75); PLATELET COUNT 182 X10'3 (140-440); RED BLOOD COUNT 4.59 X10'6 (4.70-6.10); RED CELL DISTRIBUTION WIDTH 15.9 % (11.5-14.5)
[2024-02-16] MEDS: cloNIDine 0.1 mg tablet PO ONE ×2 (21:25→23:49)
[2024-02-16 21:34] LABS: ALANINE AMINOTRANSFERASE 23 U/L (12-78); ALBUMIN 3.5 G/DL (3.4-5.0); ALBUMIN/GLOBULIN RATIO 0.8 (1.1-1.5); ALKALINE PHOSPHATASE 106 IU/L (46-116); ANION GAP 9 (8-16); ASPARTATE AMINO TRANSFERASE 15 U/L (10-37); BLOOD UREA NITROGEN 30 MG/DL (7-18); BUN/CREATININE RATIO 17.9 (10.0-20.0); CHLORIDE 105 MMOL/L (99-107); CREATININE 1.68 MG/DL (0.60-1.10); GLUCOSE 108 MG/DL (70-104); POTASSIUM 4.2 MMOL/L (3.5-5.1); SODIUM 137 MMOL/L (135-145); TOTAL CARBON DIOXIDE 23.2 MMOL/L (24-32); eCRCL 35 ML/MIN; eGFR 40 ML/MIN
[2024-02-16 21:40] LABS: LARGE PLATELETS FEW; PLATELET ESTIMATE NORMAL
[2024-02-16 21:42] LABS: PRO BRAIN NATRIURETIC PEPTIDE 289 PG/ML (0-450)
[2024-02-17 01:23] VITALS: BP 160/90; PULSE 74; RESP 18; O2SAT 98
== END 2024-02-17 01:24 | disposition home or self-care (01) ==
LOC: ER 20:59
DX: I10 Essential (primary) hypertension (principal); E78.00 Pure hypercholesterolemia, unspecified; K21.9 Gastro-esophageal reflux disease without esophagitis; E11.9 Type 2 diabetes mellitus without complications; Z98.890 Other specified postprocedural states; Z86.711 Personal history of pulmonary embolism; Z79.82 Long term (current) use of aspirin; Z79.899 Other long term (current) drug therapy; Z79.84 Long term (current) use of oral hypoglycemic drugs
CPT/HCPCS: 36415; 71045; 80053; 83880; 84484; 85008; 85025; 93005; 99285

== ENCOUNTER 2024-02-17 11:53 | Emergency (ER) | payer MEDICARE, MEDICAID ==
[~2024-02-17] VITALS: Ht 175.3 cm; Wt 72.7 kg
[2024-02-17 12:07] VITALS: TEMP 97.8
[2024-02-17 14:00] VITALS: BP 129/67; PULSE 63; RESP 16; O2SAT 95
== END 2024-02-17 15:01 | disposition left against medical advice (07) ==
LOC: ER 11:53
DX: R07.89 Other chest pain (principal); R06.02 Shortness of breath; Z53.21 Procedure and treatment not carried out due to patient leaving prior to being seen by health care provider
CPT/HCPCS: 36415; 84484; 93005

== ENCOUNTER 2024-02-28 22:23 | Emergency (ER) | payer MEDICARE, MEDICAID ==
[~2024-02-28] VITALS: Ht 175.3 cm; Wt 59.1 kg
[2024-02-28 22:56] VITALS: TEMP 98.1
[2024-02-28 22:57] LABS: BASOPHILS % (AUTO) 0.4 % (0-1); EOSINOPHILS % (AUTO) 0.2 % (0-6); HEMATOCRIT 38.9 % (42.0-52.0); HEMOGLOBIN 12.8 g/dl (14.0-17.9); LYMPHOCYTES # (AUTO) 2.7 X10'3 (1.1-4.8); LYMPHOCYTES % (AUTO) 31.2 % (21-51); MEAN CORPUSCULAR HEMOGLOBIN 28.5 PG (27.0-31.0); MEAN CORPUSCULAR HGB CONC 32.9 g/dL (33.0-36.5); MEAN CORPUSCULAR VOLUME 86.8 FL (78-98); MEAN PLATELET VOLUME 8.9 FL (7.4-10.4); MONOCYTES # (AUTO) 0.8 X10'3 (0-0.9); MONOCYTES % (AUTO) 9.6 % (2-12); NEUTROPHILS % (AUTO) 58.6 % (42-75); PLATELET COUNT 206 X10'3 (140-440); RED BLOOD COUNT 4.48 X10'6 (4.70-6.10); WHITE BLOOD COUNT 8.5 X10'3 (4.5-11.0)
[2024-02-28 23:12] LABS: ALANINE AMINOTRANSFERASE 22 U/L (12-78); ALBUMIN 3.6 G/DL (3.4-5.0); ALBUMIN/GLOBULIN RATIO 0.9 (1.1-1.5); ALKALINE PHOSPHATASE 110 IU/L (46-116); ANION GAP 14 (8-16); ASPARTATE AMINO TRANSFERASE 21 U/L (10-37); BILIRUBIN,TOTAL 1.3 MG/DL (0.1-1.0); BLOOD UREA NITROGEN 45 MG/DL (7-18); BUN/CREATININE RATIO 20.6 (10.0-20.0); CALCIUM 8.8 MG/DL (8.5-10.1); CHLORIDE 98 MMOL/L (99-107); CREATININE 2.18 MG/DL (0.60-1.10); GLUCOSE 93 MG/DL (70-104); POTASSIUM 4.6 MMOL/L (3.5-5.1); SODIUM 132 MMOL/L (135-145); TOTAL CARBON DIOXIDE 20.1 MMOL/L (24-32); TOTAL PROTEIN 7.5 G/DL (6.4-8.2); eCRCL 24 ML/MIN; eGFR 30 ML/MIN
[2024-02-28 23:19] LABS: PRO BRAIN NATRIURETIC PEPTIDE 253 PG/ML (0-450)
[2024-02-29] MEDS ORDERED: CEPH-585 PO (00:29)
[2024-02-29] MEDS: cephalexin 250mg capsule PO ONE (01:18)
[2024-02-29 01:29] VITALS: BP 136/81; PULSE 71; RESP 16; O2SAT 96
== END 2024-02-29 02:09 | disposition home or self-care (01) ==
LOC: ER 22:24
DX: N39.0 Urinary tract infection, site not specified (principal); R07.9 Chest pain, unspecified; I10 Essential (primary) hypertension; E78.00 Pure hypercholesterolemia, unspecified; Z86.711 Personal history of pulmonary embolism; K21.9 Gastro-esophageal reflux disease without esophagitis; E11.9 Type 2 diabetes mellitus without complications; Z98.890 Other specified postprocedural states; Z56.0 Unemployment, unspecified; Z79.899 Other long term (current) drug therapy; Z79.82 Long term (current) use of aspirin; Z79.84 Long term (current) use of oral hypoglycemic drugs
CPT/HCPCS: 36415; 71045; 80053; 83880; 84484; 85025; 93005; 99285

== ENCOUNTER 2024-05-13 07:41 | Emergency (ER) | payer MEDICARE, MEDICAID ==
[~2024-05-13] VITALS: Ht 170.2 cm; Wt 70.0 kg
[2024-05-13 08:21] LABS: BASOPHILS % (AUTO) 0.6 % (0-1); EOSINOPHILS # (AUTO) 0.3 X10'3 (0-0.9); EOSINOPHILS % (AUTO) 3.9 % (0-6); HEMATOCRIT 41.4 % (42.0-52.0); HEMOGLOBIN 13.4 g/dl (14.0-17.9); LYMPHOCYTES # (AUTO) 1.8 X10'3 (1.1-4.8); LYMPHOCYTES % (AUTO) 27.2 % (21-51); MEAN CORPUSCULAR HEMOGLOBIN 27.1 PG (27.0-31.0); MEAN CORPUSCULAR HGB CONC 32.4 g/dL (33.0-36.5); MEAN CORPUSCULAR VOLUME 83.6 FL (78-98); MEAN PLATELET VOLUME 8.9 FL (7.4-10.4); MONOCYTES # (AUTO) 0.3 X10'3 (0-0.9); MONOCYTES % (AUTO) 4.3 % (2-12); NEUTROPHILS # (AUTO) 4.4 X10'3 (1.8-7.7); PLATELET COUNT 137 X10'3 (140-440); RED BLOOD COUNT 4.95 X10'6 (4.70-6.10); RED CELL DISTRIBUTION WIDTH 17.3 % (11.5-14.5); WHITE BLOOD COUNT 6.8 X10'3 (4.5-11.0)
[2024-05-13] MEDS: niCARDipine-NS 40mg/200ml IVPB 200 ML IV SCH (08:28)
[2024-05-13 08:31] LABS: APTT 26 SECONDS (22-32); PROTHROMBIN TIME 10.2 SECONDS (9.0-12.0)
[2024-05-13 08:32] LABS: ALANINE AMINOTRANSFERASE 12 U/L (12-78); ALBUMIN 3.8 G/DL (3.4-5.0); ALBUMIN/GLOBULIN RATIO 0.9 (1.1-1.5); ALKALINE PHOSPHATASE 116 IU/L (46-116); ANION GAP 12 (8-16); ASPARTATE AMINO TRANSFERASE 13 U/L (10-37); BILIRUBIN,TOTAL 0.4 MG/DL (0.1-1.0); BLOOD UREA NITROGEN 39 MG/DL (7-18); BUN/CREATININE RATIO 22.9 (10.0-20.0); CALCIUM 8.6 MG/DL (8.5-10.1); CHLORIDE 105 MMOL/L (99-107); GLUCOSE 234 MG/DL (70-104); POTASSIUM 4.3 MMOL/L (3.5-5.1); SODIUM 140 MMOL/L (135-145); TOTAL CARBON DIOXIDE 22.7 MMOL/L (24-32); TOTAL PROTEIN 8.2 G/DL (6.4-8.2); eCRCL 35 ML/MIN; eGFR 39 ML/MIN
[2024-05-13 08:39] LABS: PRO BRAIN NATRIURETIC PEPTIDE 348 PG/ML (0-450)
[2024-05-13] MEDS ORDERED: pantoprazole 40 MG vial IV SCH (09:20)
[2024-05-13] MEDS: pantoprazole 40 MG vial IV ONE (09:32)
[2024-05-13] MEDS: ipratropium/albuterol 3ml nebule NEB PRN (09:56)
[2024-05-13 09:57] VITALS: PULSE 85; RESP 18
[2024-05-13 10:03] VITALS: PULSE 75; RESP 16; O2SAT 100
[2024-05-13 12:15] VITALS: BP 128/72; PULSE 77; RESP 16; TEMP 98; O2SAT 98
== END 2024-05-13 18:20 ==
LOC: ER 07:42
DX: I61.0 Nontraumatic intracerebral hemorrhage in hemisphere, subcortical (principal); I10 Essential (primary) hypertension; E78.00 Pure hypercholesterolemia, unspecified; E11.9 Type 2 diabetes mellitus without complications; J44.9 Chronic obstructive pulmonary disease, unspecified; K21.9 Gastro-esophageal reflux disease without esophagitis; Z86.711 Personal history of pulmonary embolism; Z98.890 Other specified postprocedural states; Z56.0 Unemployment, unspecified; Z79.899 Other long term (current) drug therapy; Z79.84 Long term (current) use of oral hypoglycemic drugs; Z79.82 Long term (current) use of aspirin
CPT/HCPCS: 36415; 70450; 71045; 80053; 82948; 83880; 84484; 85025; 85610; 85730; 93005; 94640; 96365; 96366; 96375; 99285; J2470; J3490; Z7610; 94760

== ENCOUNTER 2024-06-11 10:58 | Emergency (ER) | payer MEDICARE, MEDICAID ==
[~2024-06-11] VITALS: Ht 175.3 cm; Wt 66.0 kg
[~2024-06-11 10:58] MED LIST changes: -TRAM50TA2 PO
[2024-06-11 11:24] LABS: BASOPHILS % (AUTO) 0.4 % (0-1); EOSINOPHILS # (AUTO) 0.2 X10'3 (0-0.9); EOSINOPHILS % (AUTO) 3.3 % (0-6); HEMATOCRIT 41.4 % (42.0-52.0); HEMOGLOBIN 13.4 g/dl (14.0-17.9); LYMPHOCYTES # (AUTO) 2.4 X10'3 (1.1-4.8); LYMPHOCYTES % (AUTO) 38.5 % (21-51); MEAN CORPUSCULAR HEMOGLOBIN 27.2 PG (27.0-31.0); MEAN CORPUSCULAR HGB CONC 32.4 g/dL (33.0-36.5); MEAN CORPUSCULAR VOLUME 83.8 FL (78-98); MEAN PLATELET VOLUME 9.5 FL (7.4-10.4); MONOCYTES # (AUTO) 0.4 X10'3 (0-0.9); MONOCYTES % (AUTO) 6.6 % (2-12); NEUTROPHILS # (AUTO) 3.1 X10'3 (1.8-7.7); NEUTROPHILS % (AUTO) 51.2 % (42-75); PLATELET COUNT 168 X10'3 (140-440); RED BLOOD COUNT 4.94 X10'6 (4.70-6.10); RED CELL DISTRIBUTION WIDTH 18.1 % (11.5-14.5); WHITE BLOOD COUNT 6.1 X10'3 (4.5-11.0)
[2024-06-11 11:39] LABS: ALANINE AMINOTRANSFERASE 15 U/L (12-78); ALBUMIN 3.7 G/DL (3.4-5.0); ALBUMIN/GLOBULIN RATIO 0.8 (1.1-1.5); ALKALINE PHOSPHATASE 124 IU/L (46-116); ANION GAP 9 (8-16); ASPARTATE AMINO TRANSFERASE 10 U/L (10-37); BILIRUBIN,TOTAL 0.7 MG/DL (0.1-1.0); BLOOD UREA NITROGEN 28 MG/DL (7-18); BUN/CREATININE RATIO 15.6 (10.0-20.0); CHLORIDE 102 MMOL/L (99-107); GLUCOSE 146 MG/DL (70-104); POTASSIUM 4.4 MMOL/L (3.5-5.1); SODIUM 136 MMOL/L (135-145); TOTAL CARBON DIOXIDE 24.8 MMOL/L (24-32); TOTAL PROTEIN 8.3 G/DL (6.4-8.2); eCRCL 33 ML/MIN; eGFR 37 ML/MIN
[2024-06-11 11:48] LABS: PRO BRAIN NATRIURETIC PEPTIDE 90 PG/ML (0-450)
[2024-06-11 16:18] VITALS: BP 149/78; PULSE 63; RESP 15; TEMP 98; O2SAT 97
== END 2024-06-11 16:24 | disposition home or self-care (01) ==
LOC: ER 10:59
DX: R07.89 Other chest pain (principal); R10.13 Epigastric pain; M79.601 Pain in right arm; M79.604 Pain in right leg; I45.10 Unspecified right bundle-branch block; I25.10 Atherosclerotic heart disease of native coronary artery without angina pectoris; E11.9 Type 2 diabetes mellitus without complications; E78.00 Pure hypercholesterolemia, unspecified; I10 Essential (primary) hypertension; J45.909 Unspecified asthma, uncomplicated; K21.9 Gastro-esophageal reflux disease without esophagitis; Z79.899 Other long term (current) drug therapy; Z79.82 Long term (current) use of aspirin; Z79.84 Long term (current) use of oral hypoglycemic drugs; Z86.711 Personal history of pulmonary embolism; Z87.440 Personal history of urinary (tract) infections
CPT/HCPCS: 36415; 71045; 80053; 83880; 84484; 85025; 93005; 99285

== ENCOUNTER 2024-06-21 06:51 | Emergency (ER) | payer MEDICARE, MEDICAID ==
[~2024-06-21] VITALS: Ht 172.7 cm; Wt 74.0 kg
[2024-06-21 07:19] VITALS: BP 139/76; PULSE 93; RESP 16; O2SAT 100
[2024-06-21 08:07] LABS: BASOPHILS % (AUTO) 0.4 % (0-1); EOSINOPHILS # (AUTO) 0.1 X10'3 (0-0.9); EOSINOPHILS % (AUTO) 1.1 % (0-6); HEMATOCRIT 39.1 % (42.0-52.0); LYMPHOCYTES # (AUTO) 1.7 X10'3 (1.1-4.8); LYMPHOCYTES % (AUTO) 21.9 % (21-51); MEAN CORPUSCULAR HEMOGLOBIN 27.5 PG (27.0-31.0); MEAN CORPUSCULAR HGB CONC 33.1 g/dL (33.0-36.5); MEAN PLATELET VOLUME 9.3 FL (7.4-10.4); MONOCYTES # (AUTO) 0.4 X10'3 (0-0.9); MONOCYTES % (AUTO) 4.9 % (2-12); NEUTROPHILS # (AUTO) 5.6 X10'3 (1.8-7.7); NEUTROPHILS % (AUTO) 71.7 % (42-75); PLATELET COUNT 150 X10'3 (140-440); RED BLOOD COUNT 4.72 X10'6 (4.70-6.10); RED CELL DISTRIBUTION WIDTH 16.8 % (11.5-14.5); WHITE BLOOD COUNT 7.8 X10'3 (4.5-11.0)
[2024-06-21 08:10] LABS: ALBUMIN 3.5 G/DL (3.4-5.0); ANION GAP 11 (8-16); BLOOD UREA NITROGEN 37 MG/DL (7-18); BUN/CREATININE RATIO 18.3 (10.0-20.0); CALCIUM 8.9 MG/DL (8.5-10.1); CHLORIDE 107 MMOL/L (99-107); CREATININE 2.02 MG/DL (0.60-1.10); GLUCOSE 130 MG/DL (70-104); POTASSIUM 4.6 MMOL/L (3.5-5.1); SODIUM 141 MMOL/L (135-145); TOTAL CARBON DIOXIDE 23.3 MMOL/L (24-32); eCRCL 31 ML/MIN; eGFR 32 ML/MIN
[2024-06-21] MEDS ORDERED: LACT10SO7 PO (09:11)
[2024-06-21] MEDS ORDERED: MAGN296S89 PO (09:11)
[2024-06-21] MEDS ORDERED: ACET-1025 PO (09:11)
[2024-06-21 09:41] VITALS: TEMP 97.5
== END 2024-06-21 09:42 | disposition home or self-care (01) ==
LOC: ER 06:52
DX: K59.00 Constipation, unspecified (principal); M19.90 Unspecified osteoarthritis, unspecified site; M25.522 Pain in left elbow; M25.521 Pain in right elbow; G89.29 Other chronic pain; J45.909 Unspecified asthma, uncomplicated; K21.9 Gastro-esophageal reflux disease without esophagitis; E78.00 Pure hypercholesterolemia, unspecified; I25.10 Atherosclerotic heart disease of native coronary artery without angina pectoris; E11.9 Type 2 diabetes mellitus without complications; I10 Essential (primary) hypertension; Z86.711 Personal history of pulmonary embolism; Z79.82 Long term (current) use of aspirin; Z79.899 Other long term (current) drug therapy; Z56.0 Unemployment, unspecified
CPT/HCPCS: 36415; 73130; 74018; 80048; 85025; 93005; 99285

== ENCOUNTER 2024-08-30 14:26 | Emergency (ER) | payer MEDICARE, MEDICAID ==
[~2024-08-30 14:26] MED LIST changes: +LACT10SO7 PO; +MAGN296S89 PO
[2024-08-30] MEDS ORDERED: AMOX-580 PO (22:32)
[2024-08-30] MEDS ORDERED: BENZ-38 PO (22:35)
== END 2024-08-30 16:16 | disposition left against medical advice (07) ==
LOC: ER 14:27
DX: R07.81 Pleurodynia (principal); Z53.21 Procedure and treatment not carried out due to patient leaving prior to being seen by health care provider

== ENCOUNTER 2024-08-30 17:12 | Emergency (ER) | payer MEDICARE, MEDICAID ==
[~2024-08-30] VITALS: Ht 175.3 cm; Wt 54.4 kg
[2024-08-30 17:22] VITALS: TEMP 98.6
[2024-08-30 19:39] LABS: BASOPHILS % (AUTO) 0.2 % (0-1); EOSINOPHILS % (AUTO) 0.2 % (0-6); HEMATOCRIT 42.1 % (42.0-52.0); LYMPHOCYTES % (AUTO) 20.1 % (21-51); MEAN CORPUSCULAR HEMOGLOBIN 26.5 PG (27.0-31.0); MEAN CORPUSCULAR HGB CONC 33.2 g/dL (33.0-36.5); MONOCYTES # (AUTO) 0.6 X10'3 (0-0.9); MONOCYTES % (AUTO) 6.4 % (2-12); NEUTROPHILS # (AUTO) 7.3 X10'3 (1.8-7.7); NEUTROPHILS % (AUTO) 73.1 % (42-75); PLATELET COUNT 212 X10'3 (140-440); RED BLOOD COUNT 5.27 X10'6 (4.70-6.10); RED CELL DISTRIBUTION WIDTH 17.3 % (11.5-14.5)
[2024-08-30 19:46] LABS: ALANINE AMINOTRANSFERASE 20 U/L (12-78); ALBUMIN 3.9 G/DL (3.4-5.0); ALKALINE PHOSPHATASE 119 IU/L (46-116); ANION GAP 13 (8-16); ASPARTATE AMINO TRANSFERASE 9 U/L (10-37); BILIRUBIN,TOTAL 0.8 MG/DL (0.1-1.0); BLOOD UREA NITROGEN 47 MG/DL (7-18); BUN/CREATININE RATIO 28.3 (10.0-20.0); CALCIUM 9.3 MG/DL (8.5-10.1); CHLORIDE 104 MMOL/L (99-107); CREATININE 1.66 MG/DL (0.60-1.10); GLUCOSE 194 MG/DL (70-104); POTASSIUM 4.1 MMOL/L (3.5-5.1); SODIUM 140 MMOL/L (135-145); TOTAL CARBON DIOXIDE 23.2 MMOL/L (24-32); eCRCL 30 ML/MIN; eGFR 41 ML/MIN
[2024-08-30] MEDS ORDERED: AMOX-580 PO (22:32)
[2024-08-30] MEDS ORDERED: BENZ-38 PO (22:35)
[2024-08-30] MEDS: amox tr/potassium clavulanate 875/125mg TAB PO ONE (22:53)
[2024-08-30] MEDS: benzonatate 100mg capsule PO ONE (22:53)
[2024-08-30 23:00] VITALS: BP 144/87; PULSE 72; RESP 17; O2SAT 99
== END 2024-08-30 23:01 | disposition home or self-care (01) ==
LOC: ER 17:13
DX: J90 Pleural effusion, not elsewhere classified (principal); N28.9 Disorder of kidney and ureter, unspecified; I25.10 Atherosclerotic heart disease of native coronary artery without angina pectoris; E78.00 Pure hypercholesterolemia, unspecified; E11.9 Type 2 diabetes mellitus without complications; I10 Essential (primary) hypertension; I48.91 Unspecified atrial fibrillation; J45.909 Unspecified asthma, uncomplicated; K21.9 Gastro-esophageal reflux disease without esophagitis; Z86.711 Personal history of pulmonary embolism; Z79.899 Other long term (current) drug therapy; Z79.82 Long term (current) use of aspirin; Z79.84 Long term (current) use of oral hypoglycemic drugs; Z56.0 Unemployment, unspecified
CPT/HCPCS: 36415; 71046; 80053; 85025; 93005; 99285

== ENCOUNTER 2024-09-11 06:45 | Emergency (ER) | payer MEDICARE, MEDICAID ==
[~2024-09-11] VITALS: Ht 170.2 cm; Wt 62.5 kg
[~2024-09-11 06:45] MED LIST changes: +AMOX-580 PO; +BENZ-38 PO
[2024-09-11 07:42] VITALS: TEMP 97.8
[2024-09-11 07:47] LABS: BASOPHILS % (AUTO) 0.5 % (0-1); EOSINOPHILS # (AUTO) 0.1 X10'3 (0-0.9); EOSINOPHILS % (AUTO) 0.8 % (0-6); HEMATOCRIT 42.2 % (42.0-52.0); HEMOGLOBIN 13.9 g/dl (14.0-17.9); LYMPHOCYTES # (AUTO) 1.8 X10'3 (1.1-4.8); LYMPHOCYTES % (AUTO) 29.5 % (21-51); MEAN CORPUSCULAR HEMOGLOBIN 26.3 PG (27.0-31.0); MEAN CORPUSCULAR HGB CONC 32.8 g/dL (33.0-36.5); MEAN CORPUSCULAR VOLUME 80.2 FL (78-98); MEAN PLATELET VOLUME 8.9 FL (7.4-10.4); MONOCYTES # (AUTO) 0.3 X10'3 (0-0.9); MONOCYTES % (AUTO) 5.1 % (2-12); NEUTROPHILS % (AUTO) 64.1 % (42-75); PLATELET COUNT 165 X10'3 (140-440); RED BLOOD COUNT 5.26 X10'6 (4.70-6.10); RED CELL DISTRIBUTION WIDTH 17.5 % (11.5-14.5); WHITE BLOOD COUNT 6.3 X10'3 (4.5-11.0)
[2024-09-11 08:18] LABS: ALANINE AMINOTRANSFERASE 18 U/L (12-78); ALBUMIN 3.7 G/DL (3.4-5.0); ALBUMIN/GLOBULIN RATIO 0.9 (1.1-1.5); ALKALINE PHOSPHATASE 109 IU/L (46-116); ANION GAP 10 (8-16); ASPARTATE AMINO TRANSFERASE 16 U/L (10-37); BLOOD UREA NITROGEN 30 MG/DL (7-18); BUN/CREATININE RATIO 18.4 (10.0-20.0); CALCIUM 9.2 MG/DL (8.5-10.1); CHLORIDE 108 MMOL/L (99-107); CREATININE 1.63 MG/DL (0.60-1.10); GLUCOSE 142 MG/DL (70-104); LIPASE 108 U/L (16-77); POTASSIUM 4.4 MMOL/L (3.5-5.1); SODIUM 142 MMOL/L (135-145); TOTAL CARBON DIOXIDE 23.9 MMOL/L (24-32); eCRCL 35 ML/MIN; eGFR 41 ML/MIN
[2024-09-11 10:27] VITALS: BP 135/78; PULSE 92; RESP 19; O2SAT 94
== END 2024-09-11 10:27 | disposition home or self-care (01) ==
LOC: ER 06:46
DX: K59.00 Constipation, unspecified (principal); E11.9 Type 2 diabetes mellitus without complications; E78.00 Pure hypercholesterolemia, unspecified; G89.29 Other chronic pain; I10 Essential (primary) hypertension; I25.10 Atherosclerotic heart disease of native coronary artery without angina pectoris; J45.909 Unspecified asthma, uncomplicated; K21.9 Gastro-esophageal reflux disease without esophagitis; Z86.711 Personal history of pulmonary embolism; Z98.890 Other specified postprocedural states; Z79.82 Long term (current) use of aspirin; Z79.84 Long term (current) use of oral hypoglycemic drugs; Z79.899 Other long term (current) drug therapy
CPT/HCPCS: 36415; 71045; 74018; 80053; 83690; 85025; 93005; 99285

== ENCOUNTER 2024-09-12 17:46 | Emergency (ER) | payer MEDICARE, MEDICAID ==
[~2024-09-12] VITALS: Ht 167.6 cm; Wt 72.3 kg
[2024-09-12 17:53] VITALS: BP 164/109; PULSE 109; RESP 16; TEMP 98.7; O2SAT 99
== END 2024-09-12 19:34 | disposition left against medical advice (07) ==
LOC: ER 17:47
DX: R07.9 Chest pain, unspecified (principal); R10.9 Unspecified abdominal pain; Z53.21 Procedure and treatment not carried out due to patient leaving prior to being seen by health care provider

== ENCOUNTER 2024-09-28 10:34 | Emergency (ER) | payer MEDICARE, MEDICAID ==
[~2024-09-28] VITALS: Ht 175.3 cm; Wt 63.6 kg
[2024-09-28 11:05] LABS: BASOPHILS % (AUTO) 0.5 % (0-1); EOSINOPHILS # (AUTO) 0.1 X10'3 (0-0.9); EOSINOPHILS % (AUTO) 1.1 % (0-6); HEMATOCRIT 41.7 % (42.0-52.0); HEMOGLOBIN 13.7 g/dl (14.0-17.9); LYMPHOCYTES # (AUTO) 1.7 X10'3 (1.1-4.8); LYMPHOCYTES % (AUTO) 25.8 % (21-51); MEAN CORPUSCULAR HEMOGLOBIN 26.6 PG (27.0-31.0); MEAN CORPUSCULAR HGB CONC 32.9 g/dL (33.0-36.5); MEAN PLATELET VOLUME 8.7 FL (7.4-10.4); MONOCYTES # (AUTO) 0.3 X10'3 (0-0.9); MONOCYTES % (AUTO) 4.4 % (2-12); NEUTROPHILS # (AUTO) 4.4 X10'3 (1.8-7.7); NEUTROPHILS % (AUTO) 68.2 % (42-75); PLATELET COUNT 190 X10'3 (140-440); RED BLOOD COUNT 5.15 X10'6 (4.70-6.10); RED CELL DISTRIBUTION WIDTH 19.1 % (11.5-14.5); WHITE BLOOD COUNT 6.4 X10'3 (4.5-11.0)
[2024-09-28 11:21] LABS: ALANINE AMINOTRANSFERASE 19 U/L (12-78); ALBUMIN 3.6 G/DL (3.4-5.0); ALBUMIN/GLOBULIN RATIO 0.8 (1.1-1.5); ALKALINE PHOSPHATASE 129 IU/L (46-116); ANION GAP 11 (8-16); ASPARTATE AMINO TRANSFERASE 17 U/L (10-37); BILIRUBIN,TOTAL 0.4 MG/DL (0.1-1.0); BLOOD UREA NITROGEN 27 MG/DL (7-18); BUN/CREATININE RATIO 18.2 (10.0-20.0); CHLORIDE 104 MMOL/L (99-107); CREATININE 1.48 MG/DL (0.60-1.10); GLUCOSE 167 MG/DL (70-104); LIPASE 126 U/L (16-77); POTASSIUM 4.5 MMOL/L (3.5-5.1); SODIUM 139 MMOL/L (135-145); TOTAL CARBON DIOXIDE 23.9 MMOL/L (24-32); TOTAL PROTEIN 7.9 G/DL (6.4-8.2); eCRCL 38 ML/MIN; eGFR 46 ML/MIN
[2024-09-28 12:02] LABS: ANISOCYTOSIS 2+; ELLIPTOCYTES 1+; PLATELET ESTIMATE NORMAL
[2024-09-28 12:59] LABS: BILIRUBIN,URINE NEGATIVE (Neg); CLARITY,URINE SLIGHTLY CLOUDY (Clear); COLOR,URINE STRAW (Yellow); GLUCOSE, URINE >=1000 mg/dl (Neg); KETONES,URINE NEGATIVE (Neg); LEUKOCYTE ESTERASE ,URINE TRACE (Neg); NITRITES, URINE NEGATIVE (Neg); OCCULT BLOOD,URINE TRACE-INTACT (Neg); PROTEIN,URINE 100 mg/dl (Neg); UROBILINOGEN,URINE 0.2 E.U/dL (0.2-1.0)
[2024-09-28 13:04] LABS: UA COLLECTION TYPE URINAL
[2024-09-28 13:05] LABS: BACTERIA,URINE 1+ /HPF (Neg); MUCUS STRANDS NONE SEEN /LPF (Neg); RBC,URINE 0-2 /HPF (0-2); SQUAMOUS EPITHELIAL CELL,UR NONE SEEN /LPF (FEW); WBC CLUMPS,URINE MANY /HPF (NEGATIVE); WBC,URINE TNTC /HPF (0-4)
[2024-09-28] MEDS: magnesium citrate 296ml oral solution PO ONE (13:16)
[2024-09-28 13:24] VITALS: BP 167/109; PULSE 73; RESP 16; O2SAT 100
== END 2024-09-28 13:24 | disposition home or self-care (01) ==
LOC: ER 10:35
DX: K59.00 Constipation, unspecified (principal); I10 Essential (primary) hypertension; E78.00 Pure hypercholesterolemia, unspecified; E11.9 Type 2 diabetes mellitus without complications; I25.10 Atherosclerotic heart disease of native coronary artery without angina pectoris; J45.909 Unspecified asthma, uncomplicated; K21.9 Gastro-esophageal reflux disease without esophagitis; G89.29 Other chronic pain; Z86.711 Personal history of pulmonary embolism; Z90.79 Acquired absence of other genital organ(s); Z79.899 Other long term (current) drug therapy; Z79.82 Long term (current) use of aspirin; Z79.84 Long term (current) use of oral hypoglycemic drugs; Z56.0 Unemployment, unspecified
CPT/HCPCS: 36415; 74018; 80053; 81001; 83690; 85008; 85025; 87088; 99284

== ENCOUNTER → 2024-12-13 | Emergency (ER) | payer MEDICARE, MEDICAID ==
[~2024-12-13] VITALS: Ht 167.6 cm; Wt 59.0 kg
[~2024-12-13] MED LIST changes: +AMLO5TAB16 PO; -AMOX-580 PO; -ASPI-1397 PO; +ATOR-2 PO; -BENZ-38 PO; -DAPA10TA; +DICL100G59 TOP; +GLIP-297 PO; +GUAN1TAB62 PO; -HYDR-3964; +LACT-373 PO; -LACT10SO7 PO; +LATA2.5D14 EACHEYE; -LINE600T14 PO; -MAGN296S89 PO; -METF-1203 PO; -PER5325T; +QUET25TA36 PO; +SUCR1TAB PO; +[UNRECOGNIZED DRUG - CODE] PO
[2024-12-13 17:49] VITALS: BP 120/83; PULSE 102; RESP 16; TEMP 98.2; O2SAT 97
--- NOTE | 2024-12-13 17:58 | ELECTROCARDIOGRAPH REPORT ---
[facility] Test Date: 2024-12-13 Test Time: 17:56:56 Pat Name: KERI LLOYD Department: [facility]- Patient ID: [facility]-[id number] Room: Gender: M Welding Specialist: : [id number] Requested By: KALEB AREVALO Order Number: [id number] Reading MD: Dr. Matthew Loomis Measurements Intervals [place] Rate: 109 P: 63 ND: 145 QRS: -67 QRSD: 142 T: 52 QT: 369 QTc: 498 Interpretive Statements Sinus tachycardia Ventricular premature complex RBBB and LAFB Baseline wander in lead(s) V3 Electronically Signed On 12-13-2024 20:38:[address] Matthew Loomis Please click the below link to view image of tracing.
[2024-12-13 18:09] LABS: BASOPHILS % (AUTO) 0.6 % (0-1); EOSINOPHILS # (AUTO) 0.2 X10'3 (0-0.9); EOSINOPHILS % (AUTO) 3.2 % (0-6); HEMATOCRIT 40.4 % (42.0-52.0); HEMOGLOBIN 13.4 g/dl (14.0-17.9); LYMPHOCYTES # (AUTO) 2.3 X10'3 (1.1-4.8); LYMPHOCYTES % (AUTO) 35.4 % (21-51); MEAN CORPUSCULAR HEMOGLOBIN 25.5 PG (27.0-31.0); MEAN CORPUSCULAR HGB CONC 33.2 g/dL (33.0-36.5); MEAN CORPUSCULAR VOLUME 76.9 FL (78-98); MEAN PLATELET VOLUME 8.6 FL (7.4-10.4); MONOCYTES # (AUTO) 0.4 X10'3 (0-0.9); MONOCYTES % (AUTO) 6.8 % (2-12); NEUTROPHILS # (AUTO) 3.5 X10'3 (1.8-7.7); PLATELET COUNT 158 X10'3 (140-440); RED BLOOD COUNT 5.26 X10'6 (4.70-6.10); RED CELL DISTRIBUTION WIDTH 18.3 % (11.5-14.5); WHITE BLOOD COUNT 6.5 X10'3 (4.5-11.0)
[2024-12-13 18:23] LABS: ALANINE AMINOTRANSFERASE 16 U/L (12-78); ALBUMIN 3.7 G/DL (3.4-5.0); ALBUMIN/GLOBULIN RATIO 0.9 (1.1-1.5); ALKALINE PHOSPHATASE 118 IU/L (46-116); ANION GAP 11 (8-16); ASPARTATE AMINO TRANSFERASE 16 U/L (10-37); BILIRUBIN,TOTAL 0.9 MG/DL (0.1-1.0); BLOOD UREA NITROGEN 24 MG/DL (7-18); BUN/CREATININE RATIO 16.3 (10.0-20.0); CALCIUM 9.2 MG/DL (8.5-10.1); CHLORIDE 105 MMOL/L (99-107); CREATININE 1.47 MG/DL (0.60-1.10); GLUCOSE 120 MG/DL (70-104); POTASSIUM 4.1 MMOL/L (3.5-5.1); SODIUM 139 MMOL/L (135-145); TOTAL CARBON DIOXIDE 22.6 MMOL/L (24-32); TOTAL PROTEIN 7.6 G/DL (6.4-8.2); eCRCL 36 ML/MIN; eGFR 47 ML/MIN
[2024-12-13 18:31] LABS: LIPASE 65 U/L (16-77); PRO BRAIN NATRIURETIC PEPTIDE 73 PG/ML (0-450)
--- NOTE | 2024-12-13 18:38 | RADIOLOGY REPORT ---
CHEST RADIOGRAPH Indication: CP Technique: Single frontal view of the chest was obtained Comparison: DI CHEST,SINGLE VIEW on DOS: 11/14/24, DI CHEST,SINGLE VIEW on DOS: 09/11/24, DI CHEST,SINGL E VIEW on DOS: 08/05/24, lung windows from prior CT of the abdomen pelvis of November 2024 FINDINGS: Lungs are slightly hyperinflated and hyperlucent peripheral markings suggesting early chronic changes which are consistent with findings in the lung windows prior abdominal CT examination. There is also calcification projecting over the expected position of the right supraspinatus tendon i n the right shoulder suggesting calcific tendinopathy. Heart size is normal. Mediastinal contours ar e unremarkable. IMPRESSION: 1. Probable chronic pulmonary changes and there is calcific tendinopathy involving the right shoulder . If imaging of the right shoulder is suggested I would recommend MRI exam. But I would also recommen d follow-up CT examination of the chest.
== END | disposition left against medical advice (07) ==
LOC: ER 17:33
DX: R10.13 Epigastric pain (principal); R07.9 Chest pain, unspecified; Z53.21 Procedure and treatment not carried out due to patient leaving prior to being seen by health care provider
CPT/HCPCS: 36415; 71045; 80053; 83690; 83880; 84484; 85025; 93005

== ENCOUNTER 2025-02-24 20:04 | Emergency (ER) | payer MEDICARE, MEDICAID ==
[~2025-02-24] VITALS: Ht 160 cm; Wt 36.5 kg
[2025-02-24 21:09] LABS: MEAN PLATELET VOLUME 9.9 FL (7.4-10.4); RED CELL DISTRIBUTION WIDTH 19.3 % (11.5-14.5)
--- NOTE | 2025-02-24 21:13 | ELECTROCARDIOGRAPH REPORT ---
[facility] Test Date: 2025-02-24 Test Time: 21:11:17 Pat Name: KERI LLOYD Department: [facility] Patient ID: [id number] Room: Gender: M Mowing Machine Operator: : [id number] Requested By: DIANDRA ALEMAN Order Number: [id number] Reading MD: Measurements Intervals [place] Rate: 65 P: 42 [place]: 169 QRS: -46 QRSD: 144 T: 6 QT: 427 QTc: 444 Interpretive Statements Sinus rhythm RBBB and LAFB Please click the below link to view image of tracing.
[2025-02-24 21:21] LABS: CREATININE 1.54 MG/DL (0.60-1.10); TOTAL CARBON DIOXIDE 19.8 MMOL/L (24-32); eCRCL 21 ML/MIN; eGFR 44 ML/MIN
[2025-02-24 21:45] LABS: PLATELET ESTIMATE NORMAL
[2025-02-24] MEDS: normal saline 500ml IV soln 500 ML IV ONE (23:12)
[2025-02-24] MEDS ORDERED: iohexol 300mg/ml 100ml inj. ONE (23:21)
--- NOTE | 2025-02-25 00:07 | RADIOLOGY REPORT ---
Exam: CT CT ABDOMEN PELVIS W/ IV CONTRAST History: abd pain, leg pain Comparison Study: CT CT ABDOMEN PELVIS on DOS: 11/14/24, CT CT ABDOMEN PELVIS on DOS: 01/12/24 TECHNIQUE: A digital tank systems maintainer image was obtained. During the uneventful, intravenous administration of c ontrast material, multislice data acquisition was obtained through the abdomen and pelvis. The data s et was subsequently reconstructed into multiplanar reformats. RADIATION DOSE: CTDI vol 10.78 mGy. DLP 533.72 mGy.cm Findings: Liver: Unremarkable. Spleen: Unremarkable. Pancreas: Scattered calcifications and tiny cysts in the region of the pancreatic head. Mildly dilate d pancreatic duct measuring up to 3 mm. Gallbladder: Dilated common bile duct measuring up to 11 mm. Adrenals: Unremarkable Kidneys: Lpntt-ruwqrbk-dqia-left parenchymal scarring. No hydronephrosis. Pelvic Viscera: Mild prostatomegaly. Vasculature: Moderate aortoiliac atherosclerosis. Retroperitoneum: Unremarkable. Bowel: No bowel obstruction. The appendix is normal. Musculoskeletal: Unremarkable. Soft tissues: Unremarkable Lungs: Basilar atelectasis/scarring. Impression: 1. Mildly dilated common bile duct and pancreatic duct. Consider further evaluation with MRCP if clin ically indicated. 2. Scattered calcifications and small cysts about the pancreatic head. This also may be further eval uated with MRCP. 3. Additional findings as detailed.
[2025-02-25 00:53] LABS: LEUKOCYTE ESTERASE ,URINE SMALL (Neg); NITRITES, URINE NEGATIVE (Neg); OCCULT BLOOD,URINE TRACE-INTACT (Neg)
[2025-02-25 00:57] LABS: UA COLLECTION TYPE CLN CATCH MIDSTREAM
[2025-02-25 01:01] LABS: SQUAMOUS EPITHELIAL CELL,UR FEW /LPF (FEW)
[2025-02-25] MEDS: mag hydrox/Alum hydrox/simeth 30ml oral suspension PO ONE (02:38)
--- NOTE | 2025-02-25 03:57 | Physician Documentation ---
History of Present Illness Chief Complaint: Abdominal Pain Stated Complaint: ABD PAIN Time Seen by MD: 21:32 Primary Medical Doctor: [facility] Mode of Arrival: POV HPI 74-year-old male, who presents with abdominal pain. History was obtained using a Daniel student officer. The patient tells me that he was doing well, until this evening when he started to have pain in his left abdomen. He also reports having pain in his legs. He tells me he was having some cramping in both of his hands. No fevers. No vomiting. No diarrhea. No dysuria. No other infectious symptoms. He denies any history of similar pain. He tells me that he did eat and drink okay today. No other acute concerns. Medication Reconciliation Allergies: Coded Allergies: No Known Allergies (Unverified , 09/12/24) Scheduled Amlodipine Besylate (Amlodipine Besylate), 1 TAB PO Q12H, (Reported) Amoxicillin (Amoxicillin), 1 CAP PO BID, (Reported) Apixaban (Eliquis), 1 TAB PO BID, (Reported) Atorvastatin Calcium (Atorvastatin Calcium), 1 TAB PO QAM, (Reported) Dapagliflozin Propanediol (Farxiga), 1 TAB PO DAILY, (Reported) Diclofenac Sodium (Diclofenac Sodium), 2 GM TOP BID, (Reported) Empagliflozin (Jardiance), 1 TAB PO DAILY, (Reported) Glipizide (Glipizide Er), 1 TAB PO DAILY, (Reported) Guanfacine Hcl (Guanfacine Hcl), 1 TAB PO HS, (Reported) Lactulose (Lactulose), 30 ML PO PRN, (Reported) Latanoprost (Latanoprost), 1 DROP EACHEYE QAFTERNOON, (Reported) Metoprolol Tartrate (Metoprolol Tartrate), 1 TAB PO BID, (Reported) Pantoprazole Sodium (Pantoprazole Sodium), 1 TAB PO DAILY, (Reported) Pregabalin (Pregabalin), 1 CAP PO TID, (Reported) Quetiapine Fumarate (Quetiapine Fumarate), 2 TAB PO BID, (Reported) Semaglutide (Rybelsus), 1 TAB PO DAILY, (Reported) Sucralfate (Sucralfate), 1 TAB PO BID, (Reported) Past Medical History Past Medical History: Coronary Artery Disease, High Cholesterol, Hypertension, Asthma, Pulmonary Embolism, GERD, Hernia, UTI, Diabetes, Chronic Pain, MRSA Abscess Past Surgical History: orthopedic surgeries Other Past Surgical History: hernia repair, TURP Patient History: No Family History of: (CABG) Coronary artery bypass grafting (CAD) Coronary arteriosclerosis (CHF) Congestive heart failure (COPD) Chronic obstructive lung disease (CVA) Cerebrovascular accident (Cancer) Malignant carcinoid tumor (DM Type 2) Diabetes mellitus type 2 (DM Type1) Diabetes mellitus type 1 ([place]) Myocardial infarction (PVD) Peripheral vascular disease (TIA) Transient ischemic attack Alzheimer's disease Aortic aneurysm Asthma Cardiac arrest Hypercholesterolemia Alcohol Use: None Drug Use: none Lives with: Family Lives In: Home Occupation: unemployed Review of Systems Constitutional: Denies: fever Gastrointestinal: Reports: abdominal pain; Denies: nausea, vomiting, diarrhea, constipated Physical Exam Vital Signs: Temperature: 97.5, Source: Temporal, Heart Rate: 63, Respiratory Rate: 15, BP: 158/87, Pulse Oximetry: 98, Weight: 36.550 Physical Exam General: This is a older [place] man lying quietly in bed, not in distress HEENT: Atraumatic, oropharynx appears dry Heart: Regular rate and rhythm, normal-appearing peripheral perfusion including normal perfusion to both feet Lungs: Clear breath sounds bilateral, normal work of breathing, normal oxygen saturation on room air Abdomen: Soft, nondistended. He does have mild discomfort on palpation in the left upper and lower abdomen, no significant epigastric pain, no right upper quadrant tenderness, no rebound or guarding Extremities: Warm and well-perfused Neuro: Alert and oriented Psychiatric: Calm and cooperative with exam Progress Results/Orders Results/Orders Orders - DIANDRA ALEMAN MD Ct Abdomen Pelvis (02/24/25 23:04) Cult Urine + [place] Ct (02/25/25 01:01) Completed Orders - DIANDRA ALEMAN MD Cbc/Diff (02/24/25 20:05) BMP (02/24/25 20:05) Lipase (02/24/25 20:05) CMP (02/24/25 20:05) Stat Ekg (02/24/25 ) Normal Saline 500ml Iv Soln (Sodium Chlo (02/24/25 23:05) Ct Abdomen Pelvis (02/24/25 23:04) Iohexol 300mg/Ml 100ml Inj. (Omnipaque-3 (02/24/25 23:21) Ua W/Microscopic, Cult If Ind (02/25/25 00:38) Acetaminophen 325mg Tablet (Tylenol Tabl (02/25/25 02:20) Mag & Alum Hydrox/Simeth Susp (Maalox Or (02/25/25 02:20) Medications Received in ER Medications (Trade) Dose Ordered Sig/Amado Route PRN Reason Start Time Stop Time Status Last Admin Dose Admin Sodium Chloride 500 ml @ 1,000 mls/hr ONCE ONCE IV 02/24/25 23:05 02/24/25 23:34 DC 02/24/25 23:12 1,000 MLS/HR (Tylenol tablet) 650 mg ONCE ONCE PO 02/25/25 02:20 02/25/25 02:22 DC 02/25/25 02:38 650 MG (Maalox oral suspension) 30 ml ONCE ONCE PO 02/25/25 02:20 02/25/25 02:22 DC 02/25/25 02:38 30 ML Vital Signs 02/24/25 02/24/25 02/24/25 02/25/25 20:11 21:03 23:12 01:59 Temp 97.5 Pulse 80 67 58 63 Resp 22 19 15 B/P (MAP) 165/86 151/82 (105) 102/66 (78) 158/87 (110) Pulse Ox 99 100 98 Laboratory Tests Test 02/24/25 21:02 02/24/25 21:08 02/25/25 00:38 White Blood Count 7.0 Red Blood Count 5.14 Hemoglobin 12.4 L Hematocrit 38.4 L Mean Corpuscular Volume 74.8 L Mean Corpuscular Hemoglobin 24.2 L Mean Corpuscular Hemoglobin Concent 32.4 L Red Cell Distribution Width 19.3 H Platelet Count 149 Mean Platelet Volume 9.9 Neutrophils (%) (Auto) 53.7 Lymphocytes (%) (Auto) 36.0 Monocytes (%) (Auto) 7.6 Eosinophils (%) (Auto) 2.0 Basophils (%) (Auto) 0.7 Neutrophils # (Auto) 3.8 Lymphocytes # (Auto) 2.5 Monocytes # (Auto) 0.5 Eosinophils # (Auto) 0.1 Basophils # (Auto) 0.0 CBC Comment Platelet Estimate Normal Red Blood Cell Morphology Perf Basophilic Stippling Anisocytosis 1+ Microcytosis 1+ Sodium Level 142 Potassium Level 4.4 Chloride Level 111 H Carbon Dioxide Level 19.8 L Anion Gap 11 Blood Urea Nitrogen 47 H Creatinine 1.54 H Estimated GFR/1.73 m2 44 BUN/Creatinine Ratio 30.5 H Glucose Level 73 Calcium Level 9.3 Total Bilirubin 0.9 Aspartate Amino Transf (AST/SGOT) 21 Alanine Aminotransferase (ALT/SGPT) 16 Alkaline Phosphatase 110 Total Protein 8.1 Albumin 4.0 Globulin 4.1 Albumin/Globulin Ratio 1.0 L Lipase 45 Chemistry Comments Glucometer 75 Urine Specimen Description Cln catch midstream Urine Color Yellow Urine Clarity Clear Urine pH 6.0 Urine Specific [place] 1.015 Urine Protein 100 H Urine Glucose (UA) 500 H Urine Ketones Negative Urine Occult Blood Trace-intact Urine Nitrite Negative Urine Bilirubin Negative Urine Urobilinogen 0.2 Urine Leukocyte Esterase Small H Urine RBC 0-2 Urine WBC 0-4 Urine Squamous Epithelial Cells Few Urine Bacteria None seen Urine Culture Indicated Indicated Volume Urine Centrifuged 10 ml Urine Comment Microbiology Date/Time Source Procedure Growth Status 02/25/25 01:01 Urine Clean Catch Midstream Urine Culture - Preliminary Culture received. Resulted EKG/XRAY/CT/US/VASC/MRI Chest X-Ray : Additional Comments I personally interpreted the EKG and this shows: Sinus rhythm, rate 65, QTC 444, no STEMI, partial right bundle-branch block CT : Impression I personally reviewed the CT scan, and this shows no acute inflammatory process, no evidence of bowel obstruction, no kidney stone Medical Decision Making Differential Dx:Considerations: Include: AAA, Aortic dissection, Appendicitis, Bowel obstruction, Cholelithasis, Constipation, Diverticular disease, Gastritis/PUD, GI hemorrhage, Hernia, Ischemic bowel, Pancreatitis, Urinary tract infection, Urolithiasis Assessment 74-year-old man presenting with abdominal pain. Here in the ED, he seems to have some left-sided abdominal discomfort, but no peritoneal findings. He otherwise has no significant associated symptoms other than some discomfort in his legs and hands. He is a challenging historian. EKG without ischemic changes. His laboratory testing is unremarkable except for mild dehydration, but no significant leukocytosis, no elevated LFTs or bilirubin. A CT scan was obtained, which shows possible dilated bile duct, but no other acute abnormality on the radiology report. CBD stone seems unlikely given his lack of right-sided pain and normal LFTs and bilirubin. He was given IV fluids for hydration and Tylenol as well as Maalox for possible gastritis. Following this he did feel improved. On re-evaluation, I asked him if he felt better and wanted to go home and he stated that he was tired and wanted to go asleep. There is no evidence an acute medical or surgical emergency at this time, and so he will be discharged home with home care instructions and I told him that if he develops any worsening pain including abdominal pain, fevers, chills, uncontrollable vomiting, or other, he should return immediately to the ER for re-evaluation. All of this was communicated using a [employer] student officer. Departure Time of Disposition: 03:56 Disposition: 01 HOME / SELF CARE / HOMELESS Impression: Primary Impression: Abdominal pain Additional Impression: Dehydration Condition: Improved Discharge Instructions: Abdominal Pain (Nonspecific) Referrals: NO PRIMARY CARE PROVIDER (PCP) Education Educated: Patient Educated regarding: diagnosis, need for follow up Signature Scribe Signature: saul Attestation: DIANDRA Mcclendon MD Feb 25, 2025 03:57
[2025-02-25 06:02] VITALS: BP 142/87; PULSE 84; RESP 14; TEMP 97.5; O2SAT 100
== END 2025-02-25 06:10 | disposition home or self-care (01) ==
LOC: ER 20:04
DX: R10.9 Unspecified abdominal pain (principal); E11.9 Type 2 diabetes mellitus without complications; E78.00 Pure hypercholesterolemia, unspecified; I10 Essential (primary) hypertension; I25.10 Atherosclerotic heart disease of native coronary artery without angina pectoris; J45.909 Unspecified asthma, uncomplicated; E86.0 Dehydration; K21.9 Gastro-esophageal reflux disease without esophagitis; Z86.711 Personal history of pulmonary embolism; Z79.899 Other long term (current) drug therapy; Z56.0 Unemployment, unspecified
CPT/HCPCS: 74177; 80053; 81001; 82948; 83690; 85008; 85025; 87088; 93005; 99285; J7040; Q9967